=== PATIENT | male | born 1960 | race Caucasian/White ===

== ENCOUNTER 2018-07-19 14:28 | Outpatient (REF) | payer MEDICAID, SELFPAY ==
[2018-07-19 21:29] LABS: HCT 45.7 % (40.0-50.0); HGB 15.3 g/dL (13.5-17.5); Mean Corp. HGB Concentration 33.5 g/dL (32.0-36.0); Mean Corpuscular Hemoglobin 32.8 pg (27.0-33.0); Mean Corpuscular Volume 97.9 fL (80-95); Mean Platelet Volume 11.1 fL (8.0-11.0); Platelet Count 128 x1000/uL (130-400); RBC 4.67 m/cumm (4.50-6.00); RBC Distribution Width 11.8 % (11.8-14.1); White Blood Cell Count 5.54 k/cumm (4.4-10.8)
[2018-07-19 21:47] LABS: ALT 30 U/L (12-78); AST 22 U/L (15-37); Alkaline Phosphatase 101 U/L (46-116); Anion Gap 8.7 mmol/L (3-11); BUN 10 mg/dL (7-18); Bilirubin, Total 0.5 mg/dL (0.2-1.0); CO2 29.3 mmol/L (21.0-32.0); CREATININE 0.79 mg/dL (0.70-1.30); Calcium 8.9 mg/dL (8.5-10.1); Chloride 104 mmol/L (98-107); Glucose 88 mg/dL (70-100); Potassium 4.7 mmol/L (3.5-5.1); Sodium 142 mmol/L (136-145); Total Protein 6.9 g/dL (6.4-8.2)
[2018-07-19 22:21] LABS: Hemoglobin A1C 5.6 % (4.5-6.2)
[2018-07-21 09:29] LABS: PSA, Screening 1.4 ng/ml (0-3.5)
== END 2018-07-19 14:48 ==
LOC: NCHCN 14:28
PROVIDERS: PCP Family Medicine; Visit Provider Family Medicine
DX: R73.9 Hyperglycemia, unspecified (principal); D69.6 Thrombocytopenia, unspecified; I10 Essential (primary) hypertension; F10.10 Alcohol abuse, uncomplicated; E78.5 Hyperlipidemia, unspecified; M1A.9XX0 Chronic gout, unspecified, without tophus (tophi); Z79.01 Long term (current) use of anticoagulants; Z12.5 Encounter for screening for malignant neoplasm of prostate
CPT/HCPCS: 80053; 84153; 85027; 83036

== ENCOUNTER 2019-07-27 17:15 | Outpatient (REF) | payer MEDICAID, SELFPAY ==
[2019-07-27 20:59] LABS: Mean Corpuscular Hemoglobin 32.7 pg (27.0-33.0); Mean Corpuscular Volume 95.9 fL (80-95); Platelet Count 138 x1000/uL (130-400); RBC Distribution Width 11.7 % (11.8-14.1); White Blood Cell Count 6.53 k/cumm (4.4-10.8)
[2019-07-27 21:13] LABS: ALT 26 U/L (16-63); AST 18 U/L (15-37); Albumin 4.1 g/dL (3.4-5.0); Alkaline Phosphatase 98 U/L (46-116); Anion Gap 9.4 mmol/L (3-11); BUN 10 mg/dL (7-18); Bilirubin, Total 0.5 mg/dL (0.2-1.0); C-Reactive Protein 0.16 mg/dL (0.0-0.3); CO2 28.6 mmol/L (21.0-32.0); Calcium 8.8 mg/dL (8.5-10.1); Chloride 104 mmol/L (98-107); Creatine Kinase 135 U/L (39-308); Glucose 76 mg/dL (70-100); Sodium 142 mmol/L (136-145); Total Protein 6.9 g/dL (6.4-8.2); Uric Acid 3.9 mg/dL (3.5-7.2)
[2019-07-27 22:14] LABS: ESR 6 mm/hr (1-20)
[2019-07-31 10:16] LABS: Hepatitis C Ab w Rflx HCV PCR Negative (NEGAT)
[2019-07-31 10:40] LABS: PSA, Screening 1.5 ng/ml (0-3.5)
[2019-07-31 11:06] LABS: Rheumatoid Factor 9 IU/mL (<12.5)
[2019-07-31 11:32] LABS: HBs Antibody, Quant <3.1 mIU/mL; Hepatitis B Surface Ab Negative
[2019-07-31 14:20] LABS: ANA Interpretation Negative (NEGAT)
== END 2019-07-27 17:35 ==
LOC: NCHCN 17:15
PROVIDERS: PCP Family Medicine; Visit Provider Family Medicine
DX: D69.6 Thrombocytopenia, unspecified (principal); E78.5 Hyperlipidemia, unspecified; I10 Essential (primary) hypertension; M25.50 Pain in unspecified joint; M79.10 Myalgia, unspecified site; Z12.5 Encounter for screening for malignant neoplasm of prostate; Z11.59 Encounter for screening for other viral diseases
CPT/HCPCS: 80053; 82550; 84153; 85027; 85652; 86706; 86803; 84550; 86038; 86140; 86431

== ENCOUNTER 2021-03-27 13:21 | Outpatient (REF) | payer MEDICAID, SELFPAY ==
[2021-03-27 15:05] LABS: ESR 5 mm/hr (0-20)
[2021-03-27 15:11] LABS: HCT 44.1 % (40.0-50.0); HGB 15.2 g/dL (13.5-17.5); MCH 32.5 pg (27.0-33.0); MCHC 34.5 % (32.0-36.0); MCV 94.2 fL (80-95); MPV 10.8 fL (8.0-11.0); Platelet Count 123 10^3/uL (130-400); RBC 4.68 10^6/uL (4.36-5.78); RDW 11.3 % (11.8-14.1); RDW-SD 38.9 fL; WBC 5.12 10^3/uL (4.4-10.8)
[2021-03-27 15:29] LABS: ALT 23 U/L (16-63); AST 17 U/L (15-37); Albumin 4.2 g/dL (3.4-5.0); Alkaline Phosphatase 93 U/L (46-116); Anion Gap 6.7 mmol/L (3-11); BUN 13 mg/dL (7-18); Bilirubin, Total 0.6 mg/dL (0.2-1.0); C-Reactive Protein 0.13 mg/dL (0.0-0.3); CO2 29.3 mmol/L (21.0-32.0); CREATININE 0.8 mg/dL (0.70-1.30); Calcium 8.7 mg/dL (8.5-10.1); Chloride 104 mmol/L (98-107); Glucose 93 mg/dL (74-106); Potassium 4.9 mmol/L (3.5-5.1); Sodium 140 mmol/L (136-145); Total Protein 7.1 g/dL (6.4-8.2); Uric Acid 3.9 mg/dL (3.5-7.2)
[2021-03-27 15:39] LABS: Hemoglobin A1C 5.5 % (<5.7)
[2021-03-27 22:33] LABS: PSA, Diagnostic 1.7 ng/mL (0.0-3.5)
[2021-03-28 11:12] LABS: Lyme Ab w Rflx to Lyme Confirm Negative (Negative)
[2021-03-28 12:08] LABS: ANA Interpretation Negative (Negative)
[2021-03-29 19:37] LABS: Anaplasma phagocytophilum Negative (Negative); B. miyamotoi PCR Negative (Negative); Babesia divergens/MO-1 Negative (Negative); Babesia duncani Negative (Negative); Babesia microti Negative (Negative); Ehrlichia chaffeensis Negative (Negative); Ehrlichia ewingii/canis Negative (Negative); Ehrlichia muris eauclairensis Negative (Negative)
[2021-03-29 22:04] LABS: Rheumatoid Factor <8.6 IU/mL (<12.0)
== END 2021-03-27 13:22 | disposition home or self-care (01) ==
LOC: NCHCN 13:21
PROVIDERS: PCP Family Medicine; Visit Provider Family Medicine
DX: M25.59 Pain in other specified joint (principal); R73.03 Prediabetes; I10 Essential (primary) hypertension; M79.18 Myalgia, other site; E78.5 Hyperlipidemia, unspecified; M1A.9XX1 Chronic gout, unspecified, with tophus (tophi); Z79.52 Long term (current) use of systemic steroids; F10.10 Alcohol abuse, uncomplicated; Z12.5 Encounter for screening for malignant neoplasm of prostate
CPT/HCPCS: 80053; 80069; 85027; 85652; 87798; 83036; 84153; 84550; 86038; 86140; 86431; 86618

== ENCOUNTER 2021-05-21 01:45 | Outpatient (CLI) | payer MEDICAID, SELFPAY ==
--- NOTE | 2021-05-21 | DI.DEXA_ITS ---
Exam(s) XR DEXA BONE DENSITY W/WO BOB EXAM: XR DEXA BONE DENSITY W/WO BOB CLINICAL HISTORY: SKILLED NURSING STEROID USE, Z79.52 TECHNIQUE: Routine DEXA evaluation of the lumbar spine, hip, or forearm. COMPARISON: No exams were available for comparison FINDINGS: Performed on a Hologic unit. Lateral image: No compression fracture evident. Lumbar Spine total T-score: -0.9 Hip total T-score:-1.3 Independent reading at the femoral neck yields a T-score of -2.2 Forearm total T-score: -2.3 IMPRESSION: Bone mineral density measures in the osteopenia range. Fracture risk is moderate. Note: Any spine fracture indicates 5x risk for subsequent spine fracture and 2x risk for subsequent h ip fracture. World Health Organization criteria for BMD interpretation classify patients: Normal...... T- Score at or above -1.0 Osteopenic... T- Score between -1.0 and -2.5 Osteoporosis... T-Score at or below -2.5
== END 2021-05-21 02:05 ==
PROVIDERS: PCP Family Medicine; Visit Provider Family Medicine
DX: R93.7 Abnormal findings on diagnostic imaging of other parts of musculoskeletal system (principal); Z79.52 Long term (current) use of systemic steroids
CPT/HCPCS: 77080

== ENCOUNTER 2021-07-04 14:29 | Outpatient (REF) | payer MEDICAID, SELFPAY ==
[2021-07-04 18:59] LABS: TSH 0.34 uIU/mL (0.36-3.74)
== END 2021-07-04 14:30 | disposition home or self-care (01) ==
LOC: NCHCN 14:29
PROVIDERS: PCP Family Medicine; Visit Provider Family Medicine
DX: R63.5 Abnormal weight gain (principal); R53.83 Other fatigue
CPT/HCPCS: 84443

== ENCOUNTER 2021-09-12 14:50 | Outpatient (REF) | payer MEDICAID, SELFPAY ==
[2021-09-12 21:13] LABS: FREE T4 0.91 ng/dL (0.76-1.46)
[2021-09-14 17:43] LABS: T3,Free 3.5 pg/mL (2.8-5.3)
== END 2021-09-12 14:51 | disposition home or self-care (01) ==
LOC: NCHCN 14:50
PROVIDERS: PCP Family Medicine; Visit Provider Family Medicine
DX: E23.0 Hypopituitarism (principal)
CPT/HCPCS: 84439; 84481

== ENCOUNTER 2022-03-06 13:40 | Outpatient (REF) | payer MEDICAID, SELFPAY ==
[2022-03-06 15:19] LABS: HCT 43.9 % (40.0-50.0); HGB 14.9 g/dL (13.5-17.5); MCHC 33.9 % (32.0-36.0); MCV 97 fL (80-95); MPV 11.1 fL (8.0-11.0); Platelet Count 133 10^3/uL (130-400); RBC 4.51 10^6/uL (4.36-5.78); RDW 11.5 % (11.8-14.1); RDW-SD 41.3 fL; WBC 5.06 10^3/uL (4.4-10.8)
[2022-03-06 15:38] LABS: Hemoglobin A1C 5.6 % (<5.7)
[2022-03-06 15:41] LABS: ALT 29 U/L (16-63); AST 19 U/L (15-37); Albumin 4.1 g/dL (3.4-5.0); Alkaline Phosphatase 103 U/L (46-116); Anion Gap 5.7 mmol/L (3-11); BUN 11 mg/dL (7-18); Bilirubin, Total 0.4 mg/dL (0.2-1.0); CO2 30.3 mmol/L (21.0-32.0); CREATININE 0.8 mg/dL (0.70-1.30); Calcium 8.7 mg/dL (8.5-10.1); Calculated LDL 150 mg/dL (<100); Chloride 104 mmol/L (98-107); Cholesterol 251 mg/dL (<200); Glucose 108 mg/dL (74-106); HDL Cholesterol 90 mg/dL (40-60); Potassium 4.8 mmol/L (3.5-5.1); Sodium 140 mmol/L (136-145); TSH (W/Ref FT4) 0.42 uIU/mL (0.36-3.74); Total Protein 6.9 g/dL (6.4-8.2); Triglyceride 58 mg/dL (<150)
[2022-03-08 16:00] LABS: Anaplasma phagocytophilum Negative (Negative); B. miyamotoi PCR Negative (Negative); Babesia divergens/MO-1 Negative (Negative); Babesia duncani Negative (Negative); Babesia microti Negative (Negative); Ehrlichia chaffeensis Negative (Negative); Ehrlichia ewingii/canis Negative (Negative); Ehrlichia muris eauclairensis Negative (Negative)
[2022-03-09 12:33] LABS: Lyme Ab w Rflx to Lyme Confirm Negative (Negative)
== END 2022-03-06 13:41 | disposition home or self-care (01) ==
LOC: NCHCN 13:40
PROVIDERS: PCP Family Medicine; Visit Provider Family Medicine
DX: I10 Essential (primary) hypertension (principal); R73.03 Prediabetes; E78.5 Hyperlipidemia, unspecified; D69.6 Thrombocytopenia, unspecified; Z79.52 Long term (current) use of systemic steroids; F10.10 Alcohol abuse, uncomplicated
CPT/HCPCS: 80053; 80061; 85027; 87798; 83036; 84443; 86618

== ENCOUNTER → 2022-04-30 02:18 | Outpatient (CLI) | payer MEDICAID, SELFPAY ==
--- NOTE | 2022-04-30 10:30 | DI.US_ITS ---
Exam(s) US ABDOMEN EXAM: US ABDOMEN CLINICAL HISTORY: HEAVY ALCOHOL USE,Z72.89; FAMILY H/O LIVER CA,Z80.0; THROMBOCYTOPENIA,D69.6 TECHNIQUE: Ultrasound abdomen performed using standard protocol. COMPARISON: No exams were available for comparison FINDINGS: Exam is limited by patient body habitus and bowel gas. LIVER: 16.4 cm in length. Increased echogenicity throughout consistent with fatty infiltration.. No focal liver lesions are seen.. GALLBLADDER: No evidence of cholelithiasis. No evidence of wall thickening. No pericholecystic fluid identified. WOMACK'S SIGN: Negative. BILIARY SYSTEM: No intrahepatic or extrahepatic biliary ductal dilation. KIDNEYS: Kidneys are symmetric in size. No evidence of renal calculi. No evidence of hydronephrosis. No renal mass or cyst identified. PANCREAS: Normal where visualized. SPLEEN: Not enlarged. ABDOMINAL AORTA AND IVC: Visualized portions normal caliber. ASCITES: None seen. IMPRESSION: Limited exam due to patient body habitus. Fatty infiltration of the liver. DATA REPOSITORY:
== END ==
PROVIDERS: PCP Family Medicine; Visit Provider Family Medicine
DX: D69.6 Thrombocytopenia, unspecified (principal); Z72.89 Other problems related to lifestyle; Z80.0 Family history of malignant neoplasm of digestive organs; K76.0 Fatty (change of) liver, not elsewhere classified
CPT/HCPCS: 76700

== ENCOUNTER 2023-03-25 12:14 | Outpatient (REF) | payer MEDICAID, SELFPAY ==
[2023-03-25 15:13] LABS: HCT 47.6 % (40.0-50.0); HGB 16.3 g/dL (13.5-17.5); MCH 32.6 pg (27.0-33.0); MCHC 34.2 % (32.0-36.0); MCV 95 fL (80-95); MPV 11.4 fL (8.0-11.0); Platelet Count 141 10^3/uL (130-400); RDW 11.8 % (11.8-14.1); RDW-SD 40.8 fL; WBC 5.34 10^3/uL (4.4-10.8)
[2023-03-25 15:37] LABS: ALT 30 U/L (16-63); AST 22 U/L (15-37); Albumin 3.9 g/dL (3.4-5.0); Alkaline Phosphatase 97 U/L (46-116); Anion Gap 5.2 mmol/L (3-11); BUN 16 mg/dL (7-18); Bilirubin, Total 0.3 mg/dL (0.2-1.0); C-Reactive Protein 0.23 mg/dL (0.0-0.3); CO2 29.8 mmol/L (21.0-32.0); Calcium 9.1 mg/dL (8.5-10.1); Chloride 105 mmol/L (98-107); Estimated GFR 85.63 (mL/min/1.73m2); Glucose 105 mg/dL (74-106); Potassium 4.8 mmol/L (3.5-5.1); Sodium 140 mmol/L (136-145); TSH (W/Ref FT4) 0.45 uIU/mL (0.36-3.74); Total Protein 7.4 g/dL (6.4-8.2)
[2023-03-25 15:51] LABS: Hemoglobin A1C 5.7 % (<5.7)
[2023-03-26 19:26] LABS: PSA, Screening 2.2 ng/mL (<=4.5)
== END 2023-03-25 12:15 | disposition home or self-care (01) ==
LOC: NCHCN 12:14
PROVIDERS: PCP Family Medicine; Visit Provider Family Medicine
DX: I10 Essential (primary) hypertension (principal); R47.89 Other speech disturbances; E23.0 Hypopituitarism; Z12.5 Encounter for screening for malignant neoplasm of prostate; Z13.1 Encounter for screening for diabetes mellitus
CPT/HCPCS: 80053; 84153; 85027; 83036; 84443; 86140

== ENCOUNTER 2023-04-26 02:34 | Outpatient (CLI) | payer MEDICAID, SELFPAY ==
--- NOTE | 2023-04-26 | DI.RAD_ITS ---
Exam(s) XR SKULL COMPLETE EXAM: XR SKULL COMPLETE CLINICAL HISTORY: HX OF HEAD INJURY Z87.828, CHECK FOR METAL PLATE FROM INJURY CHILD. TECHNIQUE: 2D digital imaging was performed. COMPARISON: No exams were available for comparison FINDINGS: No fracture or other significant abnormalities are seen. The calvaria and skull base are normal. No metallic plate is seen. No metallic foreign bodies are noted in the orbits. IMPRESSION: Unremarkable radiographs of the skull. DATA REPOSITORY: RADIATION DOSE DELIVERED:
== END 2023-04-26 02:54 ==
LOC: DI 02:34
PROVIDERS: PCP Family Medicine; Visit Provider Family Medicine
DX: Z87.828 Personal history of other (healed) physical injury and trauma (principal)
CPT/HCPCS: 70260

== ENCOUNTER 2023-05-18 00:59 | Outpatient (CLI) | payer MEDICAID, SELFPAY ==
--- NOTE | 2023-05-18 10:45 | DI.MRI_ITS ---
Exam(s) MR ANGIO BRAIN WO EXAM: MR ANGIO BRAIN WO CLINICAL HISTORY: H/O HEAD INJURY, Z87.826; SPEECH DISTURBANCE, R47.9 TECHNIQUE: Performed on 1.5 dioni unit with [id number] sequence. No IV contrast COMPARISON: MR MR BRAIN WO from 05/18/2023 FINDINGS: Both internal carotid arteries are patent in the skull base-carotid canals and are also patent in cav ernous sinuses. Supraclinoid aspects of these vessels are patent. Both A1 segments are patent. Ant erior cerebral arteries are patent. No evidence of aneurysm at the level of the anterior communicati ng artery. The right middle cerebral artery is patent. Left middle cerebral artery exhibits loss of flow signal just distal to its origin with critical stenosis at this level and asymmetric decreased flow more pe ripherally in this vessel. Posterior circulation: Vertebral arteries at the skull base both contribute to the formation of the b asilar artery. Basilar artery is patent. Distally the basilar artery gives off superior cerebellar arteries and above this level terminates as patent left posterior cerebral artery. The right posteri or cerebral artery is fed by posterior communicating artery on the right side of the [id number]-lc-Amuphb . A smaller left posterior communicating artery is also evident on the left side of the twkjnr-uo-Lm llis. There is no aneurysm of the tip of the basilar artery. IMPRESSION: 1. Critical stenosis bordering on occlusion evident in the left middle cerebral artery just distal to its origin. There is decreased flow signal in the more peripheral aspect of the left middle cerebra l artery also noted. The right middle cerebral artery is patent. 2. There are posterior communicating arteries on both sides the skvndj-jg-Leovxm. No obvious aneurysms evident. DATA REPOSITORY:
--- NOTE | 2023-05-18 10:45 | DI.MRI_ITS ---
Exam(s) MR BRAIN WO EXAM: MR BRAIN WO CLINICAL HISTORY: H/O HEAD INJURY, Z87.826; SPEECH DISTURBANCE, R47.9 TECHNIQUE: Multiplanar multisequence MRI of the brain was performed. COMPARISON: MR MR ANGIO BRAIN WO from 05/18/2023 FINDINGS: CEREBRAL PARENCHYMA: There is no evidence of intracranial hemorrhage, mass effect, or shift of midline structures. There are no extra-axial fluid collections. Ventricles are not enlarged or shifted. There is no significant focal signal abnormality in the cerebellar hemispheres nor within the jermaine, m idbrain, and thalami. There is some signal abnormality in the mid left periventricular white matter. This also exhibits mi ld restricted diffusion and most probably represents subacute infarct in this region. In addition, there is asymmetric CSF space over the right temporal and right frontal lobes in the ant erior and middle right cranial fossa. Has more the appearance of atrophy than an actual arachnoid cy st at this level. PITUITARY GLAND: No mass nor parasellar abnormality. No obvious abnormality in the cavernous sinuses. FLOW VOIDS: The expected flow void are noted. No evidence of obvious aneurysm nor obvious vascular ma lformation. PARANASAL SINUSES: Mucosal thickening left maxillary sinus. No fluid level. Also left frontal sinus mucosal thickening without fluid level. ORBITS: No obvious findings. IMPRESSION: There is signal abnormality in the immediate periventricular left white matter which exhibits mild re stricted diffusion consistent with probable subacute lacunar infarct at this level. Area of atrophy-encephalomalacia over the right frontotemporal region in the right anterior and middl e cranial fossa. No intra-axial signal abnormality at this level. DATA REPOSITORY:
== END 2023-05-18 01:19 ==
LOC: DI 01:00
PROVIDERS: PCP Family Medicine; Visit Provider Family Medicine
DX: Z87.828 Personal history of other (healed) physical injury and trauma (principal); R47.9 Unspecified speech disturbances; I66.02 Occlusion and stenosis of left middle cerebral artery
CPT/HCPCS: 70544; 70551

== ENCOUNTER 2023-06-08 01:13 | Outpatient (CLI) | payer MEDICAID, SELFPAY ==
--- NOTE | 2023-06-08 | DI.CT_ITS ---
Exam(s) CT BRAIN CTA EXAM: CT BRAIN CTA CLINICAL HISTORY: MIDDLE CEREBRAL ARTERY STENOSIS, I66.09. TECHNIQUE: Imaging Protocol: Axial CT angiography was performed with multi-slice acquisition and mu lti-planar and/or 3D reconstructions. CONTRAST MATERIAL: Intravenous: Omnipaque 350 Contrast volume:85 mL COMPARISON: MR MR ANGIO BRAIN WO from 05/18/2023 MR MR BRAIN WO from 05/18/2023 FINDINGS: Internal Carotid Arteries: Petrous: Normal. Cavernous: Normal. Cerebral: Normal. Middle Cerebral Arteries: Right: No aneurysm, occlusion or significant stenosis. Left: No aneurysm or occlusion. Significant stenosis is again noted in the proximal right middle cer ebral artery, similar appearance to the previous exam. Again there is reduced flow to the more distal branches.. Anterior Cerebral Arteries: Right: No aneurysm, occlusion or significant stenosis. Left: No aneurysm, occlusion or significant stenosis. Posterial Cerebral Arteries: Right: No aneurysm, occlusion or significant stenosis. Left: No aneurysm, occlusion or significant stenosis. Vertebral Arteries: Right: No aneurysm, occlusion or significant stenosis. Left: No aneurysm, occlusion or significant stenosis. Basilar Artery: No aneurysm, occlusion or significant stenosis. CT head without in with IV contrast: Atrophy is again noted with some asymmetry in the inferior right temporal and frontal fossa. The lacu josue infarct seen in the left periventricular white matter is not visible on the current study. No new abnormalities. No evidence of hemorrhage. Ventricles are unchanged in appearance mucosal thickening in the left maxillary and multiple ethmoid sinuses. Mucosal thickening in the left frontal sinus. Mas toid air cells are clear. IMPRESSION: No significant change in appearance of stenosis of the proximal M1 segment of the left middle cerebra l artery. No acute abnormality in the brain. RADIATION DOSE DELIVERED: 1,499.41mGy.cm Total DLP DATA REPOSITORY: All CT scans at this facility are submitted to the National Radiology Data Registry (NRDR) Dose Index Registry (DIR) with the [employer] (ACR). RADIATION OPTIMIZATION: All CT scans at this facility use at least one of these dose optimization te chniques: automated exposure control; mA and/or kV adjustment per patient size (includes targeted exa ms where dose is matched to clinical indication); or iterative reconstruction.
[2023-06-08 08:43] LABS: CREATININE 1.1 mg/dL (0.70-1.30); Estimated GFR 76.37 (mL/min/1.73m2)
[2023-06-08] MEDS: Normal Saline Flush 10 ML SYR IVP (08:54)
[2023-06-08] MEDS: Normal Saline - Diluent 50 ML VIAL IJ (08:54)
[2023-06-08] MEDS: Omnipaque 350 MG/ML 500 ML BTL-Imaging package IJ (08:54)
== END 2023-06-08 01:33 ==
LOC: DI 01:15
PROVIDERS: PCP Family Medicine; Visit Provider Family Medicine
DX: I66.8 Occlusion and stenosis of other cerebral arteries (principal); I73.89 Other specified peripheral vascular diseases; I10 Essential (primary) hypertension
CPT/HCPCS: 70496; 82565

== ENCOUNTER 2023-06-18 09:31 | Outpatient (REF) | payer MEDICAID, SELFPAY ==
[2023-06-18 15:56] LABS: ALT 30 U/L (16-63); AST 21 U/L (15-37); Calculated LDL 121 mg/dL (<100); Cholesterol 227 mg/dL (<200); HDL Cholesterol 75 mg/dL (40-60); Triglyceride 157 mg/dL (<150)
[2023-06-18 16:42] LABS: Creatine Kinase 109 U/L (39-308)
== END 2023-06-18 09:32 | disposition home or self-care (01) ==
LOC: NCHCN 09:31
PROVIDERS: PCP Family Medicine; Visit Provider Family Medicine
DX: E78.5 Hyperlipidemia, unspecified (principal); I73.9 Peripheral vascular disease, unspecified
CPT/HCPCS: 80061; 82550; 84450; 84460

== ENCOUNTER 2023-08-26 01:49 | Outpatient (CLI) | payer MEDICAID, SELFPAY ==
--- NOTE | 2023-08-26 14:00 | DI.US_ITS ---
APPROVED REPORT EXAM: Comprehensive 2D, Doppler, and color-flow Echocardiogram Patient Location: Out-Patient Residential Property Tax Appraiser: Arleen Pack RDCS (AE) Indications: Peripheral vascular disease, HTN Other Information Study Quality: Fair. Technically limited study due to body habitus, limited subcostal imaging.. Conclusion Normal left ventricular wall thickness and chamber size. Ejection fraction is 60%. Wall motion is n ormal Normal right ventricular size and systolic function Both atria are normal in size There is no structural or hemodynamically significant valvular disease Wall motion Left Ventricle The left ventricle is normal size. The left ventricular systolic function is normal. The left ventric ular ejection fraction is within the normal range. There is normal left ventricular wall thickness. T here is normal LV segmental wall motion. LVEF is 60%. Right Ventricle The right ventricle is normal size. The right ventricular systolic function is normal. Atria The left atrium size is normal. The right atrium size is normal. Aortic Valve The aortic valve is normal in structure. There is no aortic valvular stenosis. Trace aortic regurgita tion. Mitral Valve The mitral valve is normal in structure. No evidence of mitral valve stenosis. Trace mitral regurgita tion. Tricuspid Valve The tricuspid valve is normal in structure. There is no tricuspid valve stenosis. Trace tricuspid reg urgitation. Unable to assess PA pressure. Pulmonic Valve The pulmonary valve is normal in structure. There is no pulmonic valvular stenosis. Mild pulmonic reg urgitation. Great Vessels The aortic root is normal in size. The ascending aorta is normal in size. The IVC was not well visual ized.Technically limited subcostal imaging. Pericardium Not clearly visualized. Appears normal. 2D Dimensions IVSD d PLAX 0.94 cm M: 0.6-1.2 Ao Root d 2.94 cm M: 3.1 - 3.7 LVPW d PLAX 0.93 cm M: 0.6 - 1.2 Ao Asc Diam d 3.37 cm M: 2.6 - 3.4 LVID d PLAX 4.98 cm M: 4.2 - 5.8 LVDs 3.38 cm M: 2.5 - 4.0 LV EF Teichholz 60.1 % FS 32.14 % LV EDV (Teich) 117.1 mL LV ESV (Teich) 46.7 mL M-Mode TAPSE 2.11 cm (M/F) >1.7 Auto EF LV EDV A4C 131.5 mL LV EDV A2C 162.5 mL LV EDV BP 146.7 mL LV ESV A4C 54.2 mL LV ESV A2C 55.8 mL LV ESV BP 54.5 mL LVEF(%) A4C 58.8 % LVEF(%) A2C 65.7 % LVEF(%) BP 62.8 % LV SV A4C 77.3 ml LV SV A2C 106.7 ml LV SV BP 92.2 ml LV CO A4C 5.8 L/min LV CO A2C 8.0 L/min LV CO BP 6.9 L/min HR A4C 74.85 BPM HR A2C 75.16 BPM LV EDV Index (BP) LA Volume LA Length A4C 6.4 cm LA Length A2C 6.1 cm LA Area A4C s 21.41 cm2 LA Area A2C s 25.56 cm2 LA Vol A4C A-L 61.01 mL LA Vol A2C A-L 91.39 mL LA Vol Biplane A-L 76.6 mL LA Vol/BSA A4C A-L LA Vol/BSA A2C A-L LA Vol/BSA BP A-L 37.2 mL/m2 LA Vol A4C MOD 57.7 mL LA Vol A2C MOD 84.9 mL LA Vol BP MOD 71.6 mL RA Volume RA Area A4C 12.6 cm2 RA ESV A4C (A-L) 25.3mL RA Vol/BSA A4C A-L RA Length A4C 5.3 cm RA ESV A4C (MOD) 23.3mL LV Diastology MV E' medial 0.083 (>0.07 m/s) MV E Vmax 0.99 (0.4-1.3 m/s) MV E/E' MED 11.89 (<14) MV A Vmax 1.10 (0.4-1.3 m/s) MV E' lateral 0.088 (>0.1 m/s) E/A Ratio 0.9 MV E/E' LAT 11.23 (<14) MV E' Average 0.086 m/s MV E/E'(average) 11.55 Aortic Valve AoV Vmax 1.75 m/s LVOT Vmax 1.41 m/s AoV Peak Grad 34.0 mmHg LVOT Peak Grad 8.0 mmHg AoV Area (Vmax) 2.90 cm2 LVOT VTI 0.298 m AoV VTI 0.356 m LVOT Mean Grad 4.4 mmHg AoV Mean Ezequiel. 1.14 m/s LVOT SV 107.07 mL AoV Mean Grad 6.1 mmHg LVOT Diam s 2.10 cm AoV Area (VTI) 3.01 cm2 AV Regurg Peak Gr. 55.75 mmHg Velocity Ratio 0.81 AR Decel Boyle 1.7m/sec2 AR DT 2189 msec AR PHT 635 msec AR Vmax 3.73 m/s Mitral Valve MV DT 164 (160-240 msec) MV Vmax TIPS 1.06 m/s MV Mean Grad 2.2 (<2mmHg) MV VTI 0.305 m Pulmonary Valve PV Vmax 1.27 (0.5-1.5 m/s) RVOT Vmax 0.75 m/s PV Peak Grad 6.4 mmHg RVOT Peak Gr. 2.3 mmHg PV Mean Ezequiel 0.85 m/s RVOT VTI 0.154 m PV Mean Grad 3.4 mmHg RVOT Mean Gr. 1.4 mmHg Tricuspid Valve TV S' 0.17 m/s
== END 2023-08-26 02:09 ==
LOC: DI 01:50
PROVIDERS: PCP Family Medicine; Visit Provider Family Medicine
DX: I73.9 Peripheral vascular disease, unspecified (principal)
CPT/HCPCS: 93306

== ENCOUNTER 2023-09-02 08:37 | Emergency (ER) | payer MEDICAID, SELFPAY ==
[2023-09-02] VITALS (13 sets, daily range): BP systolic 167; BP diastolic 81; PULSE 73–95; RESP 10–29; TEMP 36.6–37.1; O2SAT 93–98
--- NOTE | 2023-09-02 08:49 | ED.GENADUL_ITS ---
Discharge Plan Disposition Patient Disposition: Home Discharge Details Clinical Impression: Community acquired pneumonia of right middle lobe of lung Primary Care Provider: Esha Chowdary V ED Provider: Joseph Merlos Home Meds and New Rx's Prescriptions: New cefpodoxime 200 mg tablet 200 mg PO Q12H Qty: 10 0RF Rx Instructions: must administer with a meal/food Continued clonidine HCl [Catapres] 0.1 MG tablet 1 tab PO BID terazosin 1 MG capsule 1 tab PO DAILY Eliquis 5 mg tablet 5 mg PO BID cholecalciferol (vitamin D3) 50 mcg (2,000 unit) tablet 2,000 unit PO DAILY docusate sodium [Stool Softener] 100 mg capsule 100 mg PO BID febuxostat 40 mg tablet 40 mg PO DAILY prednisone 2.5 mg tablet 2.5 mg PO DAILY Discharge Instructions Instructions: Pneumonia (ED) Additional Instructions: Please read all of the information that accompanies these instructions. You were seen in the emergency department for your shortness of breath and cough. Your CAT scan showed no sign of blood clot in your lungs but did show that you have a pneumonia. You are receiving antibiotics that you should take as directed. Please schedule an appointment with your primary care provider later this week. Please return to the emergency department if develop worsening shortness of breath any fevers or have any falls. Discharge Data Discharge Date/Time-TO BE ENTERED AT DEPARTURE: 09/02/23 11:55 HPI General Date/Time Provider Initiated Documentation: 09/02/23 08:49 . HPI Narrative: MDM This is an overall very well-appearing normothermic and not tachycardic 63-year-old male with cough shortness of breath concerning for the possibility of pneumonia. No pain out of proportion to suggest necrotizing soft tissue infection. No chest pain to suggest ACS. Patient does endorse pleuritic chest pain has a history of PE so we will obtain a D-dimer to assess for possibility of pulmonary embolism. No epigastric tenderness to suggest pancreatitis. Equal breath sounds so my suspicion for pneumothorax is low given no preceding trauma. No history of emesis to suggest esophageal rupture. Patient is not a smoker and has no wheeze so defer nebulized bronchodilators at this point in time. We will send a COVID swab. Will provide acetaminophen for oral analgesia. Patient is not hypoxic however given his history of daily alcohol abuse and comorbidities of hypertension hyperlipidemia will obtain basic labs in the event that the patient has an pneumonia on chest x-ray to calculate a port score. Patient denies history of alcohol withdrawal. His vital signs are notable for hypertension but not tachycardia. He is not tremulous so I will not score him on a CIWA protocol. 9:33 AM Chest x-ray read is reassuring with no acute process. CBC lacks anemia thrombocytopenia and leukocytosis. 9:36 AM Patient metabolic panel showing mild hyperglycemia but no anion gap and normal bicarbonate??not consistent with DKA. No JONATHAN. Reassuring renal function. No acute electrolyte abnormalities. 9:50 AM COVID-negative. 11:[address] patient was found to have a small right middle lobe infiltrate for which he will receive cefpodoxime 200 mg twice daily. He has a port score at 62 points making him appropriate for an empiric trial of discharge with outpatient follow-up. We will provide him with return indications including any shortness of breath fevers chills or any falls. First dose of antibiotics administered in the ED. Chronic conditions affecting the care of the patient: Hypertension hyper lipidemia remote PE History obtained from an outside historian: Patient's [place] [facility] [place] hyperlipidemia history of PE alcohol abuse [Diagnostic interpretations performed by me:] [Per my independent interpretation chest x-ray shows:] No acute cardiopulmonary process Medications: Acetaminophen & Hycodan Social determinants of health affecting disposition: N/A Management discussed with: N/A Treatment/interventions considered: Hospitalization but deferred given no hypoxia and low port score Response to therapies provided: N/A HPI This is a 63-year-old male with a history of hypertension hyperlipidemia Daily alcohol abuse arrived to the emergency department via private vehicle in the setting of cough and shortness of breath. Patient reports that 6 days ago he began having symptoms of cough and shortness of breath. He has also had some pain when he breathes. His pain is located in his epigastrium. He reports that his symptoms are not completely similar to a pulmonary embolism that he had in 2013 and for which he continues to take apixaban. He reports that 7 days ago he had an echocardiogram which was scheduled as a result of a remote CVA. He is occasionally bringing up some phlegm. He denies hemoptysis chest pain syncope fevers and vomiting. He does have some epigastric discomfort when he coughs. He is with his who is subsequently also become ill. He had no preceding sick contacts. He denies routine tobacco but he does drink beer every day. He denies history of withdrawal. He denies illicit drug use. Exam General: Well-appearing in no acute distress speaking in complete sentences. Head: Normocephalic, atraumatic. Eye: Extraocular eye movements intact. No conjunctival injection. No scleral icterus. Ear, nose, mouth, throat: Grossly normal inspection. Normal voice, handling secretions normally. Neck: Trachea midline. Cardiovascular: Well-perfused distal extremities. Regular rate and rhythm Respiratory: Nonlabored respiration. Clear lungs bilaterally. Gastrointestinal: Nondistended abdomen. Soft nontender abdomen. Musculoskeletal: No edema. Moving all 4 extremities spontaneously. Skin: Normal for age and race, grossly normal temperature and turgor. No acute rash. Neurologic: Alert and appropriate, no apparent acute deficits. Psychiatric: Mood and manner are appropriate. Grooming and personal hygiene are appropriate. Related Data Home Medications Medication Instructions Recorded Confirmed clonidine HCl 0.1 mg tablet 1 tab PO BID 01/04/14 09/02/23 (Catapres) terazosin 1 mg capsule 1 tab PO DAILY 01/04/14 09/02/23 apixaban 5 mg tablet (Eliquis) 5 mg PO BID 09/02/23 09/02/23 cefpodoxime 200 mg tablet 200 mg PO Q12H #10 tabs 09/02/23 cholecalciferol (vitamin D3) 50 2,000 unit PO DAILY 09/02/23 09/02/23 mcg (2,000 unit) tablet docusate sodium 100 mg capsule 100 mg PO BID 09/02/23 09/02/23 (Stool Softener) febuxostat 40 mg tablet 40 mg PO DAILY 09/02/23 09/02/23 prednisone 2.5 mg tablet 2.5 mg PO DAILY 09/02/23 09/02/23 Previous Rx's Medication Instructions Recorded cefpodoxime 200 mg tablet 200 mg PO Q12H #10 tabs 09/02/23 Allergies Allergy/AdvReac Type Severity Reaction Status Date / Time No Known Allergies Allergy Unverified 01/04/14 15:14 General Stated Complaint: RespSymp HERNESTO: 3 PFSH All Active Problems (Updated 09/02/23 @ 11:22 by Joseph Merlos MD) Community acquired pneumonia of right middle lobe of lung (Acute) Social History Smoking/Tobacco Use Status: Never Smoking risk assessment performed?: Yes Alcohol Intake: current Alcohol Intake frequency: a few times a week Drug use: Never Substance use type: does not use Housing: house Do you feel safe at home: Yes Do you feel safe in your relationship?: Yes Additional Social history: unable to ask alone Course Vital Signs Vital signs: Vital Signs Temperature 36.6 C 09/02/23 08:40 Pulse 93 H 09/02/23 08:40 Respiratory Rate 18 09/02/23 08:40 Blood Pressure 167/81 H 09/02/23 08:40 Pulse Oximetry 98 09/02/23 08:40 Temperature 36.6 C 09/02/23 08:40 Temperature Source Tympanic 09/02/23 08:40 Pulse 93 H 09/02/23 08:40 Respiratory Rate 18 09/02/23 08:40 Respiratory Effort Short of Breath 09/02/23 08:48 Blood Pressure 167/81 H 09/02/23 08:40 Pulse Oximetry 98 09/02/23 08:40 PAWSS Have you Been Recently Intoxicated or Drunk Within the Last 30 days?: No Have you Ever Experienced Previous Episodes of Alcohol Withdrawal?: No Have you ever Experienced Withdrawal Seizures?: No Have you ever Experienced Delirium Tremens(DT)s?: No Have you ever undergone Alcohol Rehabilitation Treatment (i.e, inpt ot outpatient treatment programs)?: No Have you ever Experienced Blackouts?: No Have you ever Combined Alcohol with other Downers within the last 90 days?: No Have you ever Combined Alcohol with any other Substance of Abuse during the last 90 days?: No Positive Blood Alcohol level on Presentation? [PCS.BAL]: No Evidence of Increased Autonomic Activity (i.e. HR>120, tremor, sweating, agitation, nausea)?: No Result: 0
--- NOTE | 2023-09-02 09:00 | DI.RAD_ITS ---
Exam(s) XR PORTABLE CHEST AP EXAM: XR PORTABLE CHEST AP CLINICAL HISTORY: Shortness of breath cough TECHNIQUE: 2D digital imaging was performed. COMPARISON: No exams were available for comparison FINDINGS: Exam limited by poor pulmonary inflation and body habitus. LUNGS: Clear. No pleural abnormality seen. HEART: Normal size. AORTA: Normal diameter. BONES: Unremarkable for age. Soft tissues: Unremarkable. IMPRESSION: No acute findings. DATA REPOSITORY: RADIATION DOSE DELIVERED:
[2023-09-02 09:05] LABS: Source Nasal/Nares
[2023-09-02] MEDS: Acetaminophen 500 MG TAB 1000 MG PO (09:14)
[2023-09-02 09:19] LABS: Abs Immature Grans 0.01 10^3/uL (0.0-0.06); Absolute Basophil Count 0.03 10^3/uL (0.0-0.2); Absolute Eosinophil Count 0.09 10^3/uL (0.0-0.7); Absolute Lymphocyte Count 1.25 10^3/uL (1.2-3.4); Absolute Monocyte Count 0.92 10^3/uL (0.1-0.8); Absolute Neutrophil Count 5.86 10^3/uL (1.2-6.7); Basophils % 0.4; Eosinophils % 1.1; HCT 44.1 % (40.0-50.0); HGB 14.7 g/dL (13.5-17.5); Immature Grans % 0.1; Lymphocytes % 15.3; MCHC 33.3 % (32.0-36.0); MCV 93 fL (80-95); MPV 10.2 fL (8.0-11.0); Monocytes % 11.3; Neutrophils % 71.8; Platelet Count 166 10^3/uL (130-400); RBC 4.74 10^6/uL (4.36-5.78); RDW 11.3 % (11.8-14.1); RDW-SD 39.2 fL; WBC 8.16 10^3/uL (4.4-10.8)
[2023-09-02 09:32] LABS: Anion Gap 6.8 mmol/L (3-11); BUN 14 mg/dL (7-18); CO2 28.2 mmol/L (21.0-32.0); Calcium 9.5 mg/dL (8.5-10.1); Chloride 101 mmol/L (98-107); Glucose 169 mg/dL (74-106); Sodium 136 mmol/L (136-145)
[2023-09-02 09:46] LABS: COVID-19 PCR Negative (Negative)
[2023-09-02 10:04] LABS: D-Dimer 2179 ng/mlFEU (<500)
[2023-09-02] MEDS: Normal Saline 500 ML IV (10:26)
[2023-09-02] MEDS: Normal Saline - Diluent 50 ML VIAL IJ (10:38)
[2023-09-02] MEDS: Omnipaque 350 MG/ML 100 ML BTL IJ (10:39)
--- NOTE | 2023-09-02 10:48 | DI.CT_ITS ---
Exam(s) CT CHEST PE CTA EXAM: CT CHEST PE CTA CLINICAL HISTORY: Shortness of breath or leg pain history of PE. TECHNIQUE: Imaging Protocol: Axial CT angiography was performed with multi-slice acquisition and mu lti-planar reconstructions as well as axial, coronal and sagittal MIP reconstructions. CONTRAST MATERIAL: Intravenous: Omnipaque 350 Contrast volume:100 ml COMPARISON: CT CT BRAIN CTA from 06/08/2023 CR XR PORTABLE CHEST AP from 09/02/2023 FINDINGS: Pulmonary Arteries: No evidence of filling defect to suggest pulmonary emboli. Tracheobronchial tree: Patent where visualized. Mediastinum and Nita: No dominant adenopathy or fluid collection. Pulmonary parenchyma: Somewhat limited evaluation due to expiratory changes. Small patchy infiltrate adjacent to inferior left hilum, in the posterior aspect of the right middle lobe. No measurable ma ss. Pleura: No effusion or pneumothorax. Heart: The heart is not dilated. No coronary artery calcifications are seen. No pericardial effusio n. Aorta: Thoracic aorta non-dilated. No aneurysm. No dissection. Upper abdomen: Unremarkable. Bones: Flowing osteophytes along the thoracic spine. Tubes, Catheters, and Lines: None IMPRESSION: No evidence of pulmonary embolism. Small infiltrate posterior right middle lobe. RADIATION DOSE DELIVERED: Total DLP DATA REPOSITORY: All CT scans at this facility are submitted to the National Radiology Data Registry (NRDR) Dose Index Registry (DIR) with the [employer] (ACR). RADIATION OPTIMIZATION: All CT scans at this facility use at least one of these dose optimization te chniques: automated exposure control; mA and/or kV adjustment per patient size (includes targeted exa ms where dose is matched to clinical indication); or iterative reconstruction.
[2023-09-02] MEDS: Cefpodoxime 200 MG TAB PO (11:40)
== END 2023-09-02 11:55 | disposition home or self-care (01) ==
PROVIDERS: Emergency Provider Emergency Medicine; PCP Family Medicine
DX: J18.9 Pneumonia, unspecified organism (principal); I10 Essential (primary) hypertension; E78.5 Hyperlipidemia, unspecified; Z86.711 Personal history of pulmonary embolism; Z79.01 Long term (current) use of anticoagulants; Z20.822 Contact with and (suspected) exposure to COVID-19
CPT/HCPCS: 36415; 71275; 80048; 87635; 96361; 99285; 71045; 85025; 85379; 99284; J3490

== ENCOUNTER 2024-05-26 09:10 | Outpatient (REF) | payer MEDICAID, SELFPAY ==
--- OUTSIDE RECORDS SUMMARY | 2024-05-26 09:12 | XMS_ITS | Data Portability ---
Author Organization [facility] Address [address] [place] [address] Care Team Providers Care Retaining Room Cutter Name Role Phone EDDY SELBY Primary Care Provider Assessment No assessment recorded. Plan of Treatment Reminders Order Date Submit Date Provider Last Modified By Organization Details Last Modified Time Details Appointments Annual Wellness Exam 40 2023 07:30A M EDDY SELBY Not available Not available Not available Follow Up 30 2024 07:30A M EDDY SELBY Not available Not available Not available Lab None recorded. Referral None recorded. Procedures None recorded. Surgeries None recorded. Imaging None recorded. Medication Orders hydrocodo ne 5 mg-acetam inophen 325 mg tablet 2022 023 [facility]-, [address] [place], [address], 11/27/2023 17:32:21 Patient TargetsNo targets recorded. Patient Instructions Encounter Date Encounter Id Patient Instructions Last Modified By Organization Details Last Modified Time 09/23/2023 [id number] Use the hydrocodone 1/2 - 1 tablet as needed for more severe knee pain - use during the day, not in the evening Restart the simvastatin 1 tablet every evening sberrian Not available 09/23/2023 16:47:56 Reason for Referral None Reported. Results Created Date Observation Date Name Description Value Unit Range Abnormal Flag LastModifiedBy Organization Detail LastModifiedTime 10/20/20 23 04/23/2021 XR, hand No observ ation record ed. [address], [address], 10/21/2023 08:49:21 10/20/2004/23/2021 XR, ankle No observ ation record ed. Not Available 10/21/2023 08:49:08 10/20/20 23 04/23/2021 XR, knee No observ ation record ed. Not Available 10/21/2023 08:48:53 Result Notes None recorded. Problems Name Status Onset Date Resolution Date Notes Provider Name and Address Organization Details Recorded Time Essential hypertension Active 201106/18/2023 - Comments only - Eddy Selby MD - BPs improved with increase in terazosin dose to 10mg (max dose), also continues clonidine. UTD with BMP. Problem Code: I10; Problem Code Type: ICD-10; Not Available [facility] 3 05:15:55 History of pulmonary embolus Active 201209/10/2021 - Comments only - Eddy Selby MD - And DVT. Recommendatio n per hematology is for him to remain anticoagulate d lifelong, seems to be tolerating Eliquis well. Up-to-date with CBC. Problem Code: Z86.711; Problem Code Type: ICD-10; Not Available [facility] 3 05:15:55 Hyperlipidemi a Active 201406/18/2023 - Comments only - Eddy Selby MD - tolerating the simvastatin at 10mg daily (has historically been intolerant of atovastatin). Will check lipids, LFTs, CPK today and decide on increasing dose. Problem Code: E78.5; Problem Code Type: ICD-10; Not Available [facility] 3 05:15:55 Pain in left foot Active 2014 Problem Code: M79.672; Problem Code Type: ICD-10; Not Available [facility] 3 05:15:55 Disorder of soft tissue Active 2015 Problem Code: M79.89; Problem Code Type: ICD-10; Not Available [facility] 3 05:15:55 Pain in left lower limb Active 2015 Problem Code: M79.605; Problem Code Type: ICD-10; Not Available [facility] 3 05:15:56 Thromboemboli sm of vein Active 201509/13/2022 - Comments only - Eddy Selby MD - , History of. He continues to take Eliquis without adverse effect. Problem Code: I82.90; Problem Code Type: ICD-10; Not Available [facility] 3 05:15:56 Pain of right knee joint Active 2015 Problem Code: M25.561; Problem Code Type: ICD-10; Not Available [facility] 3 05:15:56 Anticoagulant therapy Active 201607/07/2021 - Comments only - Eddy Selyb MD - With history of DVT. He remains on Eliquis. I will need to touch base with him at the next visit regarding his history of hematology evaluation and what their recommendatio ns were. Not Available [facility] 3 05:15:56 Thrombocytope shona disorder Active 201703/28/2023 - Comments only - Eddy Selby MD - , History of. Also anticoagulate d. We will check a CBC. Problem Code: D69.6; Problem Code Type: ICD-10; Not Available [facility] 3 05:15:56 Adult health examination Active 201707/27/2019 - Comments only - Faizan Marks - Ordered PSA screening. Encouraged him to continue his current lifestyle regimen. Problem Code: Z00.00; Problem Code Type: ICD-10; Not Available [facility] 3 05:15:56 Chronic tophaceous gout Active 09/13/2022 - Comments only - Eddy Selby MD - And osteoarthriti s. He continues on the Febuxostat and has not had any significant gout flares recently. He does continue to take prednisone 2.5 mg most days for arthritic pain. Strongly encouraged him to cut back which he has been doing, some days not taking it at all. Discussed that the goal would be that he would use predominantly Tylenol for osteoarthriti c pain and just have prednisone available for flares which may be related to chronic gout. Problem Code: M1A.9xx1; Problem Code Type: ICD-10; Not Available [facility] 3 05:15:56 Joint pain Active 201807/27/2019 - Comments only - Faizan Marks - /myalgias. Will check CK, ESR, CRP, MIKKI, and rheumatoid factor. Problem Code: M25.50; Problem Code Type: ICD-10; Not Available [facility] 3 05:15:56 Muscle pain Active 2018 Problem Code: M79.10; Problem Code Type: ICD-10; Not Available [facility] 3 05:15:56 Prediabetes Active 201903/28/2023 - Comments only - Eddy Selby MD - Due for an A1c Problem Code: R73.03; Problem Code Type: ICD-10; Not Available [facility] 3 05:15:56 Long-term current use of systemic steroid Active 202009/13/2022 - Comments only - Eddy Selby MD - DEXA scan last year did show some osteopenia. He is taking vitamin D, aware of the importance of getting off daily prednisone. A1c last year was 5.6. Problem Code: Z79.52; Problem Code Type: ICD-10; Not Available [facility] 3 05:15:57 Bone density finding Active 202003/09/2022 - Comments only - Eddy Selby MD - again, working on cutting back on prednisone. On vit D, getting some weight bearing exercise. Problem Code: M85.80; Problem Code Type: ICD-10; Not Available [facility] 3 05:15:57 Fatigue Active 2020 Problem Code: R53.83; Problem Code Type: ICD-10; Not Available [facility] 3 05:15:57 Abnormal weight gain Active 202007/07/2021 - Comments only - Eddy Selby MD - And fatigue. The fatigue he attributes to the Covid vaccination although it has not improved over the intervening months. Weight gain may be related to his decreased activity but I think it worthwhile checking thyroid functions. Problem Code: R63.5; Problem Code Type: ICD-10; Not Available [facility] 3 05:15:57 Hypopituitari sm Active 202003/09/2022 - Comments only - Eddy Selby MD - but normal free T4 an T3, will recheck TSH today Problem Code: E23.0; Problem Code Type: ICD-10; Not Available [facility] 3 05:15:57 Osteoarthriti s of multiple joints Active 202003/09/2022 - Comments only - Eddy Selby MD - and h/o chronic gout - he continues on the uloric which has worked well for the gout. He will continue trying to avoid the prednisone daily for his gouty arthritis/marc ctive arthritis. He is learning to pace himself better and sounds like he is handling pain better. Problem Code: M15.9; Problem Code Type: ICD-10; Not Available [facility] 3 05:15:57 Self-injuriou s behavior Active 202003/28/2023 - Comments only - Eddy Selby MD - , Again not currently interested in cutting back. We discussed that, he is aware there are things that might be able to help him in the future when he is ready to start cutting back on alcohol use. Problem Code: Z72.89; Problem Code Type: ICD-10; Not Available [facility] 3 05:15:57 Family history of malignant neoplasm of prostate Active 202103/28/2023 - Comments only - Eddy Selby MD - Due for PSA Problem Code: Z80.42; Problem Code Type: ICD-10; Not Available [facility] 3 05:15:57 Family history of malignant neoplasm of digestive organ Active 202109/13/2022 - Comments only - Eddy Selby MD - And prostate cancer. He did meet with genetic counseling at [facility], they did not find any significant inheritable cancer genes for which she is relieved. He is aware that this does not mean he could not develop a cancer. PSA checked last year was within normal limits. Problem Code: Z80.0; Problem Code Type: ICD-10; Not Available [facility] 3 05:15:58 History of injury Active 2022 Problem Code: Z87.828; Problem Code Type: ICD-10; Not Available [facility] 3 05:15:58 Disturbance in speech Active 202203/28/2023 - Comments only - Eddy Selby MD - , Transient, concern for TIA. Discussed that sometimes people have TIAs as a precursor to a larger stroke and it is very important to get this evaluated. We will start with imaging. Basil states that he had a significant head injury at about [age] years of age, he does not know if he has a metal plate in his head or not. He also has a history of welding. We will get a skull film to start with and then decide on MRI versus CT. Pending result will then dispense decide on Holter monitor, echocardiogra m. Of note he is on Eliquis for history of DVTs. He does take it consistently. 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 Results have been forwarded to [facility]. He has not yet heard from neurology there. Genny is going to contact them early next week to try and schedule an appt. In the meantime he continues on the eliquis, simvastatin. He did not tolerate the ASA 81mg (diarrhea). Problem Code: I66.09; Problem Code Type: ICD-10; Not Available [facility] 3 05:15:58 Peripheral vascular disease Active 2022 Problem Code: I73.9; Problem Code Type: ICD-10; Not Available [facility] 3 05:15:58 Altered bowel function Active 202206/18/2023 - Comments only - Eddy Selby MD - with benign findings on exam today. He is due for a colonoscopy this year (prior one 10 years ago WN). He wants to hold off until MCA stenosis evaluated. Discussed managing constipation better with metamucil (doesn't have alot of fiber in his diet) to see if that helps. The diarrhea may be stool leak around constipation. Problem Code: R19.4; Problem Code Type: ICD-10; Not Available [facility] 3 05:15:58 Pulmonary embolism Completed 201208/04/2023 Not Available [facility] 3 05:16:07 Hyperglycemia Completed 201602/28/2020 Problem Code: R73.9; Problem Code Type: ICD-10; Not Available [facility] 3 05:16:12 Alcohol abuse Completed 201109/10/2021 Problem Code: F10.10; Problem Code Type: ICD-10; Not Available [facility] 3 05:16:15 Chronic gout without tophus Completed 201401/23/2019 Problem Code: M1A.9xx0; Problem Code Type: ICD-10; Not Available [facility] 3 05:16:18 Nondependent alcohol abuse, continuous Completed 201108/04/2023 Problem Code: 305.01; Problem Code Type: ICD-9; Not Available [facility] 3 05:16:19 Pneumonia Completed 202209/23/[address], [facility] [address] , [facility] 3 16:43:56 Constipation Active [address], [facility] [address] , [facility] 4 17:32:57 Problem Notes None recorded. Procedures Surgical History None recorded. Imaging Results Imaging Date Name Status LastModified by Organiz ation Details LastModified Time 04/23/2021 XR, hand completed [address], [place], [address], 10/21/2023 08:49:21 04/23/2021 XR, ankle completed Information no t available 10/21/2023 08:49:08 04/23/2021 XR, knee completed Information no t available 10/21/2023 08:48:53 Procedure Notes None recorded. Medical Equipment None Reported. Allergies Allergen ID Allergen Name Allergen Category Reaction Reaction Severity Criticality Documentation Date Start Date Code Code System Note Provider Name and Address Organization Details Recorded Time allopurin ol medicatio n other mild Not available 09/17/20232010 519 RxNorm GI upset Aller gyRea ction : 'GI upset '; Not Available [facility] 3 16:11:52 atenolol medicatio n other mild Not available 09/17/20232012 1202 RxNorm fatig ue Aller gyRea ction : 'fati twyla'; Not Available [facility] 3 16:11:52 Norvasc medicatio n other mild Not available 09/17/20232012 51146 RxNorm flu-l calixto sympt oms Aller gyRea ction : 'flu- like sympt oms'; Not Available [facility] 3 16:11:52 55604 morphine sulfate medicatio n swelling mild Not available 09/17/20232012 62042 RxNorm swell ing Not Available [facility] 3 16:11:53 22001 Tylenol medicatio n other moderate Not available 09/17/20232016 52906 3 RxNorm stoma ch upset Aller gyRea ction : 'stom ach upset '; Aller gyCod e: '[id number] 08'; Aller gyNam e: 'TYLE NOL'; Aller gyCon ceptT ype: 'NDC' ; Not Available [facility] 3 16:11:53 11035 atorvasta tin medicatio n arthralgi a (joint pain) moderate high 09/22/20232021 56447 RxNorm achin ess in LEs Nilam Lucio [facility] 3 08:00:12 36656 tramadol medicatio n other moderate high 09/22/20232015 74204 RxNorm kiko ers gout Nilam [place] [facility], [facility] 3 08:00:57 72427 diltiazem Not available headache swelling moderate moderate high 09/22/20232012 3443 RxNorm LE swell ing Nilam Lucio [facility], [facility] 3 08:02:08 34414 hydrochlo rothiazid e medicatio n photosens itivity moderate high 09/22/20232011 5487 RxNorm very sun/h eat sensi tive Nilam [place] [facility], [facility] 3 08:03:07 74001 hydrocodo ne Not available headache moderate low 11/26/2023 5489 RxNorm fall of 2022, also sever e sweat s EDDY SELBY MD [address], [place], [address] , [facility] 4 08:22:28 28261 simvastat in medicatio n other moderate high 11/26/20232022 46028 RxNorm throa t swell ing sensa tion - tried on 3 diffe rent occas ions EDDY SELBY MD [address], [place], [address] , [facility] 4 08:36:12 Medications Name Sig Start Date Stop Date Status Note LastModified by Organization Details LastModified Time losartan 50 mg tablet 1 TAB daily 02/21 completed Not Available Not Available Not Available cyclobenzap rine 10 mg tablet 1 tab three times a day prn 12/26 completed Not Available Not Available Not Available terazosin 5 mg capsule Take 1 capsule by mouth every night 07/22 completed Not Available Not Available Not Available hydralazine 10 mg tablet 1 tab bid, may end up increasin g to 2 tabs bid 07/27 completed Not Available Not Available Not Available Colace 100 mg capsule Take 1 capsule by mouth twice a day , can decrease to once a day in the future 11/26 completed Not Available Not Available Not Available clonidine HCl 0.1 mg tablet 2CAP twice daily 10/22 completed Not Available Not Available Not Available prednisone 10 mg tablet Take 1 tablet by mouth once a day as needed active Not Available Not Available No t Available Protonix 40 mg tablet,michelle yed release 1 daily 11/04 completed Not Available Not Available Not Available terazosin 5 mg tablet 1 TAB at bedtime 02/02 completed Not Available Not Available Not Available doxycycline hyclate 100 mg capsule Take 1 capsule twice a day for 1 day if tick has been attached for more than a few hours, call the office if attached for longer or any associate d rash/feve r/increas ed joint aches 2021 active Not Available Not Available Not Avai lable atorvastati n 10 mg tablet Take 1 tablet by mouth every evening 09/05 completed Not Available Not Available Not Available cefpodoxime 200 mg tablet TAKE ONE TABLET BY MOUTH EVERY 12 HOURS WITH FOOD OR MEAL 09/23 completed Not Available Not Available Not Available Lotrisone 1 %-0.05 % topical cream cream twice daily 02/24 completed Not Available Not Available Not Available hydrocodone 5 mg-acetamin ophen 325 mg tablet Take 1 tablet twice a day by oral route as needed. 11/27 completed Not Available Not Available Not Available Keflex 500 mg capsule Take 1 tab four times daily 11/01 completed Not Available Not Available Not Available lisinopril 20 mg tablet 1 qd 09/03 completed Not Available Not Available Not Available prednisone 20 mg tablet TAKE 2 TABLETS BY MOUTH DAILY FOR 5 DAYS, THEN 1 DAILY FOR 5 DAYS 09/23 completed Not Available Not Available Not Available clonidine HCl 0.3 mg tablet TAKE 1 TABLET BY MOUTH TWICE A DAY 2023 active Not Available Not Available Not Avai lable simvastatin 10 mg tablet Take 1 tablet by mouth every night as directed can start with 1/2 tablet every night and if no side effects in a few weeks increase to a whole tablet 10/26 completed Not Available Not Available Not Available aspirin 81 mg tablet,michelle yed release Take 1 tablet by mouth once a day with breakfast 06/18 completed Not Available Not Available Not Available tramadol 50 mg tablet 1 tab by mouth 4 times a day prn 12/26 completed Not Available Not Available Not Available clonidine HCl 0.2 mg tablet TAKE 1 TABLET BY MOUTH TWICE A DAY 03/25 completed Not Available Not Available Not Available Percocet 10 mg-325 mg tablet 1CAP q6h 05/09 completed Not Available Not Available Not Available terazosin 2 mg capsule TAKE 1 CAPSULE BY MOUTH AT BEDTIME 10/10 completed Not Available Not Available Not Available hydrocodone 7.5 mg-acetamin ophen 325 mg tablet 1 tab qid prn as needed 02/02 completed Not Available Not Available Not Available prednisone 2.5 mg tablet TAKE 1 TABLET BY MOUTH DAILY TRY TO REDUCE TO EVERY OTHER DAY active Not Available Not Available No t Available Norvasc 5 mg tablet 1 TAB daily 09/06 completed Not Available Not Available Not Available promethazin e 25 mg tablet 1 tabs q6hrs as needed 11/04 completed Not Available Not Available Not Available Hyzaar 50 mg-12.5 mg tablet 1 TAB QD 02/21 completed Not Available Not Available Not Available indomethaci n 50 mg capsule Take 1 tab TID 02/02 completed Not Available Not Available Not Available terazosin 1 mg tablet 1 TAB at bedtime 10/18 completed Not Available Not Available Not Available triamcinolo ne acetonide 0.5 % topical ointment ointment tid 02/14 completed Not Available Not Available Not Available magnesium 250 mg tablet 1 tab daily 11/22 completed Not Available Not Available Not Available Coumadin 5 mg tablet tab daily 11/22 completed Not Available Not Available Not Available Tylenol-Cod eine #3 300 mg-30 mg tablet 1 tab 6h PRN 11/15 completed Not Available Not Available Not Available albuterol sulfate HFA 90 mcg/actuati on aerosol inhaler Inhale 2 puffs every 4 hours by inhalatio n route as needed. active Not Available Not Available No t Available Naprosyn 500 mg tablet 1 TAB Twice a day 2014 active Not Available Not Available Not Avai lable losartan 100 mg tablet 1 TAB daily 03/04 completed Not Available Not Available Not Available terazosin 10 mg capsule TAKE 1 CAPSULE BY MOUTH EVERY NIGHT active Not Available Not Available No t Available atenolol 50 mg tablet 1 TAB QD 09/06 completed Not Available Not Available Not Available Diltiazem ER 240 mg capsule, extended release 1 CAP daily 02/02 completed Not Available Not Available Not Available Diltiazem ER 180 mg capsule, extended release 1 CAP daily 01/13 completed Not Available Not Available Not Available diltiazem ER 120 mg tablet,exte nded release 24 hr 1 CAP daily 01/12 completed Not Available Not Available Not Available Tylenol 8 Hour 650 mg tablet,exte nded release Take 2 tablet by mouth twice a day as needed 2020 active Not Available Not Available Not Avai lable metoprolol tartrate 25 mg tablet Take 1/2 tab at hs 07/27 completed Not Available Not Available Not Available multivitami n 1TAB daily 11/22 completed Not Available Not Available Not Available omeprazole 20 mg tablet,michelle yed release Take 1 by mouth BID 11/15 completed Not Available Not Available Not Available cholecalcif ricardo (vitamin D3) 50 mcg (2,000 unit) tablet TAKE 1 TABLET BY MOUTH DAILY 2023 active Not Available Not Available Not Avai lable febuxostat 40 mg tablet TAKE 1 TABLET BY MOUTH DAILY. Uloriq active Not Available Not Available No t Available Colcrys 0.6 mg tablet take 2 tabs at first sign of attach and 1 tab 1 hour later, max 3tabs in 12 hour period. 12/26 completed Not Available Not Available Not Available Eliquis 5 mg tablet TAKE 1 TABLET BY MOUTH TWICE A DAY active Not Available Not Available No t Available Metamucil 0.4 gram capsule Take 1 capsule by mouth twice a day Take with full cup of water, call if you start developin g diarrhea 2022 active Not Available Not Available Not Avai lable Vitals Date Recorded Body height Body mass index (BMI) Body weight Body temperature Oxygen saturation Oxygen saturation in Arterial blood by Pulse oximetry Heart rate Respiratory rate Systolic blood pressure Diastolic blood pressure Provider Name and Address Organization Details Last Updated DateTime 3 169.189 4 cm 33.3 kg/m2 00442.1 2 g 97.5 [degF] 96 % 96 % 76 /min 16 /min 132 mm[Hg] 62 mm[Hg] Nilam Lucio [facility] 3 07:57:14 Date Recorded Body height Body mass index (BMI) Body weight Body temperature Oxygen saturation Oxygen saturation in Arterial blood by Pulse oximetry Heart rate Respiratory rate Systolic blood pressure Diastolic blood pressure Provider Name and Address Organization Details Last Updated DateTime 4 169.189 4 cm 33.3 kg/m2 52223.4 g 97.5 [degF] 96 % 96 % 92 /min 16 /min 130 mm[Hg] 78 mm[Hg] Nilam Lucio [facility] 4 07:55:29 Date Recorded Body height Body mass index (BMI) Body weight Oxygen saturation Oxygen saturation in Arterial blood by Pulse oximetry Heart rate Systolic blood pressure Diastolic blood pressure Provider Name and Address Organization Details Last Updated DateTime 4 169.189 4 cm 33.3 kg/m2 84590.8 3 g 97 % 97 % 65 /min 136 mm[Hg] 68 mm[Hg] Tom Caldera MA [facility] 4 07:36:15 Social History Question Answer Notes LastModified by Organizat ion Details LastModified Time Tobacco Smoking Status Never Smoker Nilam copeland [facility] 09/23/2023 08:01:11 What Was The Date Of Your Most Recent Tobacco Screening? 09/23/2023 [email or web address] Information not available 09/23/2023 Has Tobacco Cessation Counseling Been Provided? No Information not available 09/23/2023 Do You Or Have You Ever Used Any Other Forms Of Tobacco Or Nicotine? No [email or web address] Information not available 09/23/2023 Sex: Male Functional Status None recorded. Mental Status None recorded. Family History Relationship Description Onset Age of this Age Resolved Age Notes Notes:*Problem: Mother: Dece ased at 69 lung cancer(small cell metastatic), arthritis(starting at a young age), had been a smoker Father: at 74 from liver CA (metastatic from melanoma) also had a h/o prostate CA, DM , gout Sisters: 2; both healthy, 1 with MS and Graves disease, other healthy Brothers: 1; alive DM Children: 2; 33 y/o daughter healthy, 30 y/o son healthy Grandmother had a CVA and lost her speach Family History of: Hypertension: mother did Hyperlipidemia: No Coronary heart disease: No Diabetes mellitus: Yes father Breast cancer: No Colorectal cancer: No Prostate cancer: Yes father Alcoholism: No Mental illness: No Other: No Landon grandparents of stomach CA and prostate CA. On mothers side GF of throat cancer, GM of CT. Cousin, aunts and uncles have from cancer. Medical History No medical history recorded. Immunizations Vaccine Type Date Status Provider Name and Address Organization Details Recorded Time COVID-19, mRNA, LNP-S, PF, toni-sucrose, 30 mcg/0.3 mL 09/23/[address], [place], [address], [facility] 09/26/2023 10:38:33 Influenza, split virus, quadrivalent, PF 09/23/[address], [place], [address], [facility] 09/26/2023 10:38:33 Tdap 05/26/2024 completed Tom Caldera MA [facility], [facility] 05/26/2024 08:54:04 Tdap 03/04/2012 completed Not Available [facility] 06:04:58 Influenza, split virus, quadrivalent, PF 09/05/2021 completed Not Available [facility] 09/17/2023 06:04:58 Influenza, split virus, quadrivalent, PF 09/10/2022 completed Not Available [facility] 09/17/2023 06:04:58 COVID-19, mRNA, LNP-S, PF, 100 mcg/0.5mL dose or 50 mcg/0.25mL dose 02/11/2021 completed Not Available [facility] 09/17/2023 06:04:58 COVID-19, mRNA, LNP-S, PF, 100 mcg/0.5mL dose or 50 mcg/0.25mL dose 03/11/2021 completed Not Available [facility] 09/17/2023 06:04:58 COVID-19, mRNA, LNP-S, PF, 100 mcg/0.5mL dose or 50 mcg/0.25mL dose 09/12/2021 completed Not Available [facility] 09/17/2023 06:04:58 COVID-19, mRNA, LNP-S, bivalent, PF, 30 mcg/0.3 mL dose 09/10/2022 completed Not Available [facility] 09/17/2023 06:04:58 Past Encounters Encounter ID Performer Location Encounter Start Date Encounter Closed Date Diagnosis/Indication Diagnosis SNOMED-CT Code [id number] EDDY SELBY MD [address] [address] 09/23/2023 07:47:27 09/23/2023 09:25:09 Osteoarthritis of knee 016327134 Osteoarthr itis of right knee joint 026284955198293 Active or passive immunization 868704197 Pneumonia 634642857 Occlusion and stenosis of middle cerebral artery without infarction 951222898088079 Hyperlipidemia 86846484 Essential hypertension 30770906 [id number] EDDY SELBY MD [address] [address] 11/26/2023 07:42:04 11/26/2023 08:50:15 Occlusion and stenosis of middle cerebral artery without infarction 603265400189025 Hyperlipidemia 65125418 Essential hypertension 19663929 Osteoarthr itis of knee 695433592 Pneumonia 663891360 Constipation 38286193 Bone density finding 385 298323 [id number] EDDY SELBY MD [address] [place] [address] 05/26/2024 07:20:55 05/26/2024 08:38:32 Active or passive immunization 265258522 Screening for malignant neoplasm of colon 889297837 Adult heal th examination 654471003 Screening for cancer 158 79065 Occlusion and stenosis of middle cerebral artery without infarction 171017028331004 Essential hypertension 72819133 Osteoarthr itis of multiple joints 816207235 Hyperlipidemia 13751006 Prediabetes 552694795 Pain of ri ght knee joint 208194227315444 Health Concerns Section Related Observation LastModified by Organization Detai ls LastModified Time None Recorded Concern Status LastModified by Organization Details LastModified Time None Recorded Advance Directives Directive None Recorded Payers Encounter Date Sequence Insurance Name Policy Number Policy Gar Covered Member ID Gar Member ID Guarantor Name 09/23/2023 1 [facility] (MEDICAID) Basil Landon [id number] Basil Landon 11/26/2023 1 [facility] (MEDICAID) Basil Landon [id number] Basil Landon Notes Date Note Type Note Provider Name and Address Organization Details Recorded Time 09/23/2023 text/html HPI Notes: f/u pneumonia, gout/arthralgias, h/o TIA MD [address], [place], [address], [facility] 09/26/2023 10:39:14 11/26/2023 text/html HPI Notes: f/u pneumonia, gout/arthralgias, h/o TIA, hyperlipidemia MD [address], [place], [address], [facility] 11/27/2023 17:35:46
--- OUTSIDE RECORDS SUMMARY | 2024-05-26 09:13 | XMS_ITS | Encounter Summary ---
Author Organization [facility] Address [facility] [place] [address] Care Team Providers Care Director Chemistry Name Role Phone Esha Chowdary MD Primary Care Provider Encounter Details Date Type Department Care Team (Late st Contact Info) Description 01/30/2014 Telephone [place]ematology [place] [address] Asrenio French MD [facility] [address] HEMATOLOGY/[place] [address] Social History Tobacco Use Types Packs/Day Years Used Date Smoking Tobacco: Never Smokeless Tobacco: Never Sex and Gender Information Value Date Recorded Sex Assigned at Not on file Gender Identity Not on file Sexual Orientation Not on file documented as of this encounter Miscellaneous Notes * Telephone Encounter - Arsenio French MD - 01/30/2014 3:18 PM EDT Received a fax from Dr. Esha Chowdary, with the results of the d-dimer testing showing an elevationof the d-dimer at 578 (normal range 45-500). He was off warfarin when this was drawn for over 3 months. He also had a colonoscopy that was negative (recommendation was to repeat the colonoscopy in 10years). Dr. Chowdary stated that Mr. Landon was having joint pains that significantly improved once he stopped the warfarin, and he will likely be reluctant to restart anticoagulation. We discussed that he hasaround 1/5 chance of having a repeat VTE in the next 2 years off anticoagulation based on the d-dimer result. I recommended lovenox 40mg subq with warfarin until INR is 2-3 and then stop lovenox and continue with warfarin, or rivaroxaban 20mg po daily. Dr. Chowdary said that she will discuss this with Mr. Landon and will contact us if there are any further questions or concerns. ARSENIO FRENCH MD (Hematology and Oncology Fellow) Pager [phone] documented in this encounter Plan of Treatment Upcoming Encounters Date Type Department Care Team (Late st Contact Info) Description 07/06/2024 9:[address] [place] [place] [address] Leticia Krishnamurthy MD [facility] [place] [address] 07/06/2024 10:00 AM EDT [place] [address] Leticia Krishnamurthy MD [facility] [place] [address] documented as of this encounter Visit Diagnoses Not on filedocumented in this encounter Care Teams Director Chemistry Relationship Specialty Start Date End Date Esha Chowdary MD [address] [place] [address] PCP - General 03/17/13 documented as of this encounter
--- OUTSIDE RECORDS SUMMARY | 2024-05-26 09:13 | XMS_ITS | Encounter Summary ---
Author Organization [place] [address] Care Team Providers Care Front Maker Name Role Phone Esha Chowdary MD Primary Care Provider [phone] Reason for Referral * Diagnostic Test (Routine) - Authorized Specialty Diagnoses / Procedures Referred By Tiffanie yuan Referred To Contact Radiology Diagnoses Cerebrovascular accident (CVA) due to stenosis of left middle cerebral artery Procedures CT Angiogram Carotids & Alturas of [place] Leticia Krishnamurthy MD [facility] [place] [address] [facility] [place] [address] Referral ID Status Reason Start Date Expiration Date Visits Requested Visits Authorized [id number] Authorized Specialty Service Requested 02/09/2024 08/10/2025 1 1 Reason for Visit * Consultation (Routine) - Authorized Specialty Diagnoses / Procedures Referred By Tiffanie yuan Referred To Contact Neurology Diagnoses Stenosis of middle cerebral artery, unspecified laterality Esha Chowdary MD [address] [address] Leticia Krishnamurthy MD [facility] [place] [address] Referral ID Status Reason Start Date Expiration Date Visits Requested Visits Authorized [id number] Authorized Consult, Test & Treat PCP Updated and/or Approved 3 09/01/2024 12 12 Encounter Details Date Type Department Care Team (Latest Contact Info) Description 02/09/2024 8:30 AM EDT TH Visit (TeleHealth) [place] [address] Leticia Krishnamurthy MD [facility] [place] [address] Cerebrovascular accident (CVA) due to stenosis of left middle cerebral artery (Primary Dx) Social History Tobacco Use Types Packs/Day Years Used Date Smoking Tobacco: Never Smokeless Tobacco: Never Sex and Gender Information Value Date Recorded Sex Assigned at Not on file Gender Identity Not on file Sexual Orientation Not on file documented as of this encounter Progress Notes * Leticia Krishnamurthy MD - 02/09/2024 8:30 AM EDT Images from the original note were not included. Cerebrovascular Disease and Stroke Program Department [place] [address] t: [phone] / f: [phone] Date of Appointment: 02/09/2024 Patient: Basil Landon PCP: MD Esha Villarreal MD [address] [place] [id number] I have been asked to see Basil Landon in consultation by Dr. Chowdary for his hx of vascular stenosis in my capacity as Vascular Neurology Specialist. Stroke Hx: 05/18/2023 Altered mentation. Slurring words, right sided weakness, unable to talk. Symptoms lasted for minutes, then several other episodes Tried statin - sore throat, joint pain Smoking never ETOH ocassional. driugs Interval History: Repeat events or new symptoms: Hospital readmissions/ED visits since discharge: Residual deficits: Ongoing rehab: Still having epsioide of speech difficulties two at month. Less than a minutes. See further assessment scales below, completed and reviewed this visit. Assessment Scales and Questionnaires 02/08/2024 Stroke:MMAS-4 MMAS-4 Score 4 (High Adherence) Do you ever forget to take your medication? No Are you careless at times about taking your medicine? No Sometimes, if you feel worse when you take the medicine, do you stop taking it? No When you feel better do you sometimes stop taking your medicine? No 02/08/2024 Stroke:PROMIS-10 Vfuofy61-Yhxxyqno Health Score 37.4 Plphzb97-Pcsdfc Health Score 38.8 Health in general Fair Quality of life Fair Physical health Fair Mental health Good Satisfaction with social activities Fair Ability to carry out physical activities Moderately Rate of pain 5 Rate of fatigue Moderate Ability to carry out social activities Fair Bothered by emotional problems Sometimes 02/08/2024 Stroke:SIS-16 SIS-16 Score 71 a. Dress the top part of your body? Not difficult at all b. Bathe yourself? Not difficult at all c. Get to the toilet on time? Not difficult at all d. Control your bladder (not have an accident)? Not difficult at all e. Control your bowels (not have an accident)? Not difficult at all f. Standing without losing balance? Not difficult at all g. Go shopping? Not difficult at all h. Do heavy magazine journalist (e.g., vaccum, laundry or yard work?) Not diffcult at all i. Stay sitting without losing your balance? Not difficult j. Walk without losing your balance? A little difficult k. Move from a bed to a chair? Not difficult at all l. Walk fast? Very difficult m. Climb one flight of stairs? A little difficult n. Walk one block? Somewhat difficult o. Get in and out of a car? A little difficult p. Carry heavy objects (e.g., bag of groceries) with your affected hand? A little difficult 02/08/2024 Stroke:Cognitive Screening Patient Cognitive Screening Yes Caregiver Cognitive Screening Yes 02/08/2024 Stroke:GAD2+7 GAD7 Total Score (Range 0-21) 0 (No Anxiety) GAD2 Subscore 0 (Brief screen negative) Nervous, anxious Not at all Unable to stop worrying Not at all 02/08/2024 Stroke:PHQ2+9 PHQ-2 Score 0 (Brief PHQ2 screen negative) Little interest or pleasure Not at all Down, depressed, hopeless Not at all 02/08/2024 Stroke:CSI (Caregiver Response) CSI Score 1 (Indicates a need for intervention) Sleep is disturbed No Inconvenient No Physical strain No Confining No Family adjustments No Changes in personal plans No Emotional adjustments No Upsetting behavior No Upsetting to find he/she has changed No Work adjustments No Financial strain No Completely overwhelmed Yes Patient Active Problem List Diagnosis Code Hypertension I10 Hyperlipemia E78.5 Pulmonary embolism I26.99 Alcohol abuse, daily use F10.10 Allergies Allergen Reactions Allopurinol GI upset Atenolol Fatigue Diltiazem LE swelling Hctz/Reserpine/Hydralazine [Bvjsmspncjv-Gznafynw-Meyzfpnvl] Very sun/heat sensitive Norvasc [Amlodipine] Flu-like symptoms Tramadol No outpatient medications have been marked as taking for the 02/09/24 encounter (TH Visit (TeleHealth)) with Leticia Krishnamurthy MD. EXAM: There were no vitals filed for this visit. Well appearing patient, nontoxic. Higher cortical function, namely attention, concentration, orientation, judgment, fund of knowledge, remote and recent memory was assessed by conversation today. hisspeech was fluent/articulate, with no word finding difficulties, no dysarthria or paraphasic errors. Normal naming and reading. Pupils are symmetric and reactive.Full conjugated extraocular movements. No facial weakness. Tongue protrudes midline. Normal sensation to light touch. Strength is symmetric in all extremities to confrontation. No ataxia, no dysmetria. Gait normal. NIH Stroke Scale: (bold applicable choices) NIH Stroke Scale at Initial Evaluation: 1.a. Level of consciousness: 0-Alert 1-Not alert, but arousable with minimal stimulation 2-Not alert, requires repeat stimulation to attend 3-Coma 1.b. Ask patient the month and their age: 0-Answers both correctly 1-Answers one correctly 2-Both incorrect 1.c. Ask patient to open and close eyes: 0-Obeys both correctly 1-Obeys one correctly 2-Both incorrect 2. Best gaze (horizontal eye movement): 0-Normal 1-Partial gaze palsy 2-Forced deviation 3. Visual field testin-No visual field loss 1-Partial hemianopia 2-Complete hemianopia 3-Bilateral hemianopia (blind including cortical blindness) 4. Facial paresis (Ask patient to show teeth or raise eyebrows and close eyes tightly): 0-Normal symmetrical movement 1-Minor paralysis (flattened nasolabial fold, asymmetry on smiling) 2-Partial paralysis (total or near paralysis of lower face) 3-Complete paralysis of one or both sides (absence of facial movement in the upper and lower face) 5. Motor function right arm: 0-Normal (extends arm 90 degrees for 10 seconds without drift) 1-Drift 2-Some effort against gravity 3-No effort against gravity 4-No movement UT-Untestable (Joint fused or limb amputated) 5. Motor function- left arm: 0-Normal (extends arm 90 degrees for 10 seconds without drift) 1-Drift 2-Some effort against gravity 3-No effort against gravity (but baseline) 4-No movement UT-Untestable (Joint fused or limb amputated) 6. Motor function right le-Normal (extends leg 30 degrees for 5 seconds without drift) 1-Drift 2-Some effort against gravity 3-No effort against gravity 4-No movement UT-Untestable (Joint fused or limb amputated) 6. Motor function-left le-Normal (extends leg 30 degrees for 5 seconds without drift) 1-Drift 2-Some effort against gravity 3-No effort against gravity 4-No movement UT-Untestable (Joint fused or limb amputated) 7. Limb ataxia: 0-No ataxia 1-Present in one limb 2-Present in two limbs 8. Sensory (Use pinprick to test arms, legs, trunk and face compare side to side): 0-Normal 1-Mild to moderate decrease in sensation 2-Severe to total sensory loss 9. Best language (describe picture, name items, read sentences): 0-No aphasia 1-Mild to moderate aphasia 2-Severe aphasia 3-Mute 10. Dysarthria (read several words): 0-Normal articulation 1-Mild to moderate slurring of words 2-Near unintelligible or unable to speak UT-Intubated or other physical barrier 11. Extinction and inattention: 0-Normal 1-Inattention or extinction to bilateral simultaneous in one of the sensory modalities 2-Severe orlin-inattention or orlin-inattention to more than one modality TOTAL SCORE: Modified Rhett Scale (MRS) 0: No symptoms at all 1: No significant disability despite symptoms; able to carry out all usual duties and activities 2: Slight disability; unable to carry out all previous activities, but able to look after own affairs without assistance 3: Moderate disability; requiring some help, but able to walk without assistance 4: Moderate disability; unable to walk without assistance and unable to attend to own bodily needs without assistance 5: Severe disability; bedridden, incontinent and requiring constant nursing care and attention 6: Data and records reviewed: Lipids Lipid Panel Last 3 Hemoglobin A1Cs No results found for: HA1C Clinical Impression and recommendations: Basil Landon is a 63 y.o.male with hx of vascular stenosis of the L MCA. Continue ASA + statin. Will monitor with CTA of head. Modifiable Risk Factors in Secondary Stroke Prevention Risk Factor Treatment Goals Hypertension Patients with hypertension: <140/90 mm Hg; 10-mm Hg reduction in systolic BP and 5-mm Hg reduction in diastolic BP from baseline Patients with diabetes mellitus or renal disease: <130/80 mm Hg; 10-mm Hg reduction in systolic BP and 5-mm Hg reduction in diastolic BP from baseline Patients without hypertension: <120/80 mm Hg; 10-mm Hg reduction in systolic BP and 5-mm Hg reduction in diastolic BP from baseline Dyslipidemia Atherosclerotic stroke or TIA: low-density lipoprotein (LDL) cholesterol level <70 mg/dl or 50% reduction in LDL cholesterol level from baseline Nonatherosclerotic stroke or TIA: per National Cholesterol Education Program (NCEP) Adult TreatmentPanel III (ATP-III) goals Diabetes Mellitus HgA1c level <7% Cigarette Smoking Complete cessation Alcohol Consumption Men: two or fewer drinks per day Non woman: one or fewer drinks per day Physical Activity At least 30 minutes of moderate intensity physical exercise 1- 3 times per week Diet Low-fat, low-sodium, and Mediterranean or Dietary Approaches to Stop Hypertension diets (diabetic diet when applicable) Obesity Goal body mass index of 18.5-25 kg/m2 Disposition: Return to clinic in 3 months. Education provided today covered: patient-specific vascular risk factors, cause of the TIA/stroke, prognosis and risk of recurrence, medications for TIA/stroke prevention, potential side effects of these medications, management of modifiable risk factors including heart healthy diet, increased physical activity, maintaining smoke free status, moderation in alcohol, weight management, blood pressure, glucose and cholesterol control, warning signs of stroke, plan to contact EMS in event of recurrent symptoms. Results of diagnostic studies were reviewed. Compliance with treatment and regular follow- up with PCP was emphasized. On the day of this encounter, I the medical provider spent a total of at least 70 minutes providingthis patient's care. This includes time spent horj-lt-hzqa with the patient performing evaluation, examination, and counseling . It also includes non qjuf-vz-jfvv time preparing to see the patient, reviewing the chart, coordinating care, and documenting clinical information in the electronic healthrecord. documented in this encounter Plan of Treatment Upcoming Encounters Date Type Department Care Team (Late st Contact Info) Description 07/06/2024 9:[address] [place] [address] Leticia Krishnamurthy MD [facility] [place] [address] 07/06/2024 10:00 AM EDT [place] [address] Leticia Krishnamurthy MD [facility] [place] [address] Scheduled Orders Name Type Priority Associated Diagnoses Orde r Schedule CT Angiogram Carotids & Alturas of [place] Imaging Routine Cerebrovascular accident (CVA) due to stenosis of left middle cerebral artery Expected: 05/10/2024, Expires: 11/09/2024 Comprehensive metabolic panel (non-fasting) Lab Routine Cerebrovascular accident (CVA) due to stenosis of left middle cerebral artery Expected: 05/10/2024, Expires: 11/09/2024 Lipid Panel (Reflex Direct LDL) Lab Routine Cerebrovascular accident (CVA) due to stenosis of left middle cerebral artery Expected: 05/10/2024, Expires: 11/09/2024 documented as of this encounter Visit Diagnoses Diagnosis Cerebrovascular accident (CVA) due to stenosis of left middle cerebral artery- Primary documented in this encounter Care Teams Front Maker Relationship Specialty Start Date End Date Esha Chowdary MD [address] [place] [address] PCP - General 03/17/13 documented as of this encounter
--- OUTSIDE RECORDS SUMMARY | 2024-05-26 09:13 | XMS_ITS | Encounter Summary ---
Author Organization [facility] [place] [address] Care Team Providers Care Lean Engineer Name Role Phone Esha Chowdary MD Primary Care Provider [phone] Reason for Visit * Reason Onset Date Comments Medication Problem 02/10/2024 Encounter Details Date Type Department Care Team (Late st Contact Info) Description 02/10/2024 Telephone [place] [address] Leticia Krishnamurthy MD [facility] [place] [address] Medication Problem Social History Tobacco Use Types Packs/Day Years Used Date Smoking Tobacco: Never Smokeless Tobacco: Never Sex and Gender Information Value Date Recorded Sex Assigned at Not on file Gender Identity Not on file Sexual Orientation Not on file documented as of this encounter Miscellaneous Notes * Telephone Encounter - Lindy Amaya RN - 02/22/2024 11:35 AM EDT Awaiting response * Telephone Encounter - Lindy Amaya RN - 02/17/2024 4:45 PM EDT Communication sent to Dr Krishnamurthy to discuss. * Telephone Encounter - Brianna Wright - 02/17/2024 4:13 PM EDT Patients spouse, Jodi, was calling to check up on this medication that was mentioned at patients last visit, Crestor. Please advise with an update * Telephone Encounter - Yessica Juarez RN - 02/10/2024 11:41 AM EDT Copied from CRM #[id number]. Topic: Specialty Dept CRMs - Medication Issues >> Feb 10, 2024 11:29 AM Mandi Simpson wrote: Medication Issues Specialist : Leticia Diamond Relationship (if other than patient-full name): Paola - Pharmacist at [facility] Reason for call: Medication Issue (if symptom based used Triage Subtopic) Message/information for the nurse: y Name of Medication: Crestor / Atovastatin Issue with the medication: Paola alongside the patient's is following up on Crestor script .Patient is under the impression that the provider has prescribed this medication. Please call the patient to clarify. documented in this encounter Plan of Treatment Upcoming Encounters Date Type Department Care Team (Late st Contact Info) Description 07/06/2024 9:[address] [place] [address] Leticia Krishnamurthy MD [facility] [place] [address] 07/06/2024 10:00 AM EDT Office [place] [address] Leticia Krishnamurthy MD [facility] [place] [address] documented as of this encounter Visit Diagnoses Not on filedocumented in this encounter Care Teams Lean Engineer Relationship Specialty Start Date End Date Esha Chowdary MD [address] [place] [address] PCP - General 03/17/13 documented as of this encounter
--- OUTSIDE RECORDS SUMMARY | 2024-05-26 09:13 | XMS_ITS | Encounter Summary ---
Author Organization [facility] [place] [address] Care Team Providers Care Lion Hunter Name Role Phone Darlin Powell BLASTING CLAY MINER Primary Care Provider [phone] Encounter Details Date Type Department Care Team (Late st Contact Info) Description 03/01/2013 Abstract [facility] [address] [facility] [place] [address] Priscilla Vázquez RN Social History Tobacco Use Types Packs/Day Years Used Date Smoking Tobacco: Never Assessed Sex and Gender Information Value Date Recorded Sex Assigned at Not on file Gender Identity Not on file Sexual Orientation Not on file documented as of this encounter Plan of Treatment Upcoming Encounters Date Type Department Care Team (Late st Contact Info) Description 07/06/2024 9:[address] [place] [phone] Leticia Krishnamurthy MD [facility] [place] [address] 07/06/2024 10:00 AM EDT [place] [phone] Leticia Krishnamurthy MD [facility] [place] [address] documented as of this encounter Visit Diagnoses Not on filedocumented in this encounter Care Teams Lion Hunter Relationship Specialty Start Date End Date Darlin Powell APRN [facility] [address] NUR [address] [place] [address] PCP - General 09/30/10 03/16/13 documented as of this encounter
--- OUTSIDE RECORDS SUMMARY | 2024-05-26 09:13 | XMS_ITS | Clinical Summary ---
Author Organization [facility] Address [facility] [place] [address] Care Team Providers Care Job Press Operator Name Role Phone Esha Chowdary MD Primary Care Provider [phone] Allergies Active Allergy Reactions Criticality Noted Date Comments Allopurinol 03/01/2013 GI upset Atenolol 03/01/2013 Fatigue Diltiazem 03/01/2013 LE swelling Thtxnpynqjd-Ofgjydiy-Vogmvp zid 03/01/2013 Very sun/heat sensitive Amlodipine 03/01/2013 Flu-like symptoms Tramadol 04/23/2021 Medications Medication Sig Dispensed Refills Start Date End Date Status terazosin (HYTRIN) 1 mg capsule Take 7 mg by mouth nightly. Active cloNIDine (CATAPRES) 0.1 mg tablet Take 0.2 mg by mouth 2 times daily. Active predniSONE (DELTASONE) 5 mg tablet Take 2.5 mg by mouth daily. In addition to 10mg prn Active Uloric 40 mg Tablet daily. 03/24/2021 Activ e Eliquis 5 mg Tablet 2 times daily. 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 90 tablet 3 02/28/2024 Active Active Problems Problem Noted Date Diagnosed Date Alcohol abuse, daily use 08/18/2013 Pulmonary embolism 06/23/2013 Overview (06/23/2013): 04/2013: RLL, Dx by CT (scanned) Hyperlipemia 03/17/2013 Hypertension Family History Medical History Relation Comments Breast Cancer Cousin double cousin (m aternal AND paternal 1st cousin to patient) Melanoma Father metastatic to li shefali Prostate Cancer Father metastatic to co real Skin Cancer Father Breast Cancer Maternal Aunt 1 Lung Cancer Maternal Aunt 2 Brain Cancer Maternal Cousin dx <40 Cancer Maternal Grandfather throat Leukemia Maternal Uncle 1 Cancer Maternal Uncle 2 unknown primary Cancer Maternal Uncle 3 unknown primary Lung Cancer Maternal Uncle 4 metastatic to b rain Lung Cancer Mother Skin Cancer Niece Skin Cancer Paternal Aunt Prostate Cancer Paternal Grandfather suspected d iagnosis Rectal Cancer Paternal Grandfather suspected m et from prostate Stomach Cancer Paternal Grandmother Stomach Cancer Paternal Uncle 1 dx <65 Lung Cancer Paternal Uncle 2 Brain Cancer Paternal Uncle 3 Relation Status Comments Cousin Father Maternal Aunt 1 Maternal Aunt 2 Maternal Cousin Maternal Grandfather Maternal Grandmother Maternal Uncle 1 Maternal Uncle 2 Maternal Uncle 3 Maternal Uncle 4 Mother Niece Alive Paternal Aunt Paternal Grandfather Paternal Grandmother Paternal Uncle 1 Paternal Uncle 2 Paternal Uncle 3 Social History Tobacco Use Types Packs/Day Years Used Date Smoking Tobacco: Never Smokeless Tobacco: Never Sex and Gender Information Value Date Recorded Sex Assigned at Not on file Gender Identity Not on file Sexual Orientation Not on file Last Filed Vital Signs Vital Sign Reading Time Taken Comments Blood Pressure 193/78 04/23/2021 2:15 PM EDT Pulse 72 04/23/2021 2:15 PM EDT Temperature 36.6 ??C (97.8 ??F) 04/23/2021 2:15 PM ED T Respiratory Rate 18 08/18/2013 10:13 AM EDT Oxygen Saturation 98% 04/23/2021 2:15 PM EDT Inhaled Oxygen Concentration - - Weight 83 kg (183 lb) 04/23/2021 2:15 PM EDT Height 168.5 cm (5' 6.34) 04/23/2021 2:15 PM ED T Body Mass Index 29.24 04/23/2021 2:15 PM EDT Plan of Treatment Upcoming Encounters Date Type Department Care Team (Late st Contact Info) Description 07/06/2024 9:[address] [place] [address] Leticia Krishnamurthy MD [facility] [place] [address] 07/06/2024 10:00 AM EDT [place] [address] Leticia Krishnamurthy MD [facility] [place] [address] Health Maintenance Due Date Last Done Comments CT Colonography 1961 Colonoscopy 1961 Colorectal Cancer Screening 1961 FIT DNA 1961 FIT 1961 Sigmoidoscopy (10 year) with FIT yearly 1961 Sigmoidoscopy 1961 HIV screen 1979 Hepatitis C Screening 1979 Tdap adult 1980 Tetanus vaccine 1980 Zoster vaccine (1 of 2) 2011 Advance Directive 2016 Covid-19 Vaccine ( season) 2023 Influenza (Flu) vaccine (1 o f 1 - Influenza standard series) 07/09/2024 Care Teams Job Press Operator Relationship Specialty Start Date End Date Esha Chowdary MD [address] [place] [address] PCP - General 03/17/13
--- OUTSIDE RECORDS SUMMARY | 2024-05-26 09:13 | XMS_ITS | Encounter Summary ---
Author Organization [facility] [place] [address] Care Team Providers Care Ripper Operator Name Role Phone Esha Chowdary MD Primary Care Provider [phone] Reason for Visit * Reason Comments Hypertension has had different me ds for hypertension with side effects; Terazosin fairly well tolerated - was dizzy when dose increased to 5 mg daily. Takes b/p at home - running 160-170/ 90s Encounter Details Date Type Department Care Team (Late st Contact Info) Description 03/17/2013 10:00 AM EDT Office Visit [facility] [address] [place] [address] Walter Mahajan Jr., MD [address] [place] [address] HTN (hypertension) (Primary Dx) Social History Tobacco Use Types Packs/Day Years Used Date Smoking Tobacco: Never Smokeless Tobacco: Never Sex and Gender Information Value Date Recorded Sex Assigned at Not on file Gender Identity Not on file Sexual Orientation Not on file documented as of this encounter Last Filed Vital Signs Vital Sign Reading Time Taken Comments Blood Pressure 182/108 03/17/2013 10:14 AM EDT L.- sitting Pulse 78 03/17/2013 10:06 AM EDT regular Temperature - - Respiratory Rate - - Oxygen Saturation - - Inhaled Oxygen Concentration - - Weight 88 kg (194 lb 0.1 oz) 03/17/2013 10:06 AM EDT Height 170.2 cm (5' 7) 03/17/2013 10:0 6 AM EDT Body Mass Index 30.39 03/17/2013 10:06 AM EDT documented in this encounter Patient Instructions * Patient Instructions* Walter Mahajan Jr., MD - 03/17/2013 10:50 AM EDT Diet Balance diet and Exercise- Energy (Calorie) Budget Diet- Healthy food selections: Fruits and vegetables Whole grains Low-fat or nonfat dairy Legumes Low-fat protein Fish -Saturated fats < 10% of calories, < 300mg cholesterol -Limit trans fatty acid intake (main dietary sources are baked goods and fried foods made with partially hydrogenated vegetable oil) Fats ??? Saturated- bad, raises LDL (bad cholesterol) ??? Trans fat- (chemically hydrogenated)- bad raises LDL and lowers HDL (good cholesterol) ??? Polyunsaturated (natural)- ok, lowers LDL but can lower HDL ??? Monounsaturated- lowers LDL, raises HDL ??? [place] 3- lowers triglycerides, raises HDL Oils ??? [place] the best- low saturated fat, high monounsaturated ??? Canola (aka rapeseed) good- mostly monounsaturated ??? Grapeseed, Peanut, corn, soybean- more polyunsaturated ??? Coconut, palm- bad, high saturated fat [place]-3 ??? Fish- especially cold water, fatty fish (salmon) ??? Green leafy vegetables ??? Soy ??? Nuts- highest in almonds, walnuts, pine nuts ??? Flax seed oil Meat ??? Small portions- one portion the size of a deck of cards ??? As lean as possible ??? Learn to love chicken (skinless) ??? Substitute soy when possible (sausage, ground meat) Starch ??? High gfxxs-tpjpi-lqgce, whole grain: good ??? White, soft, ???melt in your mouth?? : bad ??? Dark, chewy / crunchy :good Calories ??? Fat- 9 calories/gram ??? Carbohydrate- 4 calories/gram ??? Protein- 4 calories/gram Portion Control- no seconds, no super-size Cook Book: http://www.nhlbi.nih.gov/health/public/heart/other/ktb_recipebk/ktb_recipebk.pdf documented in this encounter Progress Notes * Walter Mahajan Jr., MD - 03/17/2013 10:45 AM EDT Referring PCP: ESHA CHOWDARY MD Cardiology consultation History: Basil Landon is a 52 y.o. old male seen at the request of ESHA CHOWDARY MD for evaluation of difficult to control HTN. He was noted to have HTN when he first started being seen a few years ago and has been tried on multiple medications. He has had to stop them for various reasons, usually related to dizziness, fatigue, or not feeling well. (see scanned note for full list). He is currently tolerating terazosin at a low dose but felt poorly on 5mg. His BP has consistently run high but he has not been on a moderate or high dose of medication ever. BP at home has been running 170-180/90-100. He recently started a significant restriction of his sodium intake at his 's insistence. He denies any chest pain, palpitations, dyspnea or edema. He has no headaches. Allergies Allergen Reactions ??? Allopurinol GI upset ??? Atenolol Fatigue ??? Diltiazem LE swelling ??? Hctz/Reserpine/Hydralazine (Iilrctlzryq-Mkbkdgtae-Ezmt) Very sun/heat sensitive ??? Norvasc (Amlodipine) Flu-like symptoms Current Outpatient Prescriptions Medication Sig Dispense Refill ??? clotrimazole-betamethasone (LOTRISONE) 1-0.05 % cream Apply topically 2 times daily. ??? Magnesium 250 mg Tab Take 1 tablet by mouth daily. ??? aspirin 81 mg chewable tablet Take 81 mg by mouth daily. ??? multivitamin (THERAGRAN) tablet Take 1 tablet by mouth daily. ??? indomethacin (INDOCIN) 50 mg capsule Take 50 mg by mouth 3 times daily as needed. ??? terazosin (HYTRIN) 1 mg capsule Take 2 mg by mouth nightly. Patient Active Problem List Diagnoses ??? Hyperlipemia ??? Hypertension Coronary risk factors: Smoking:never Diabetes:no Hypercholesterolemia:? Hypertension:yes Family history of premature disease:no Cardiac tests: none SH: , lives with , works in logging, very active, drinks 8 beers a night ROS: says he feels fine, denies any issues aside from side effects from meds Physical Exam: BP 182/108 Pulse 78 Ht 170.2 cm (5' 7) Wt 88 kg (194 lb 0.1 oz) BMI 30.39 kg/m2 General: WD, mildly overweight Skin: no rash HEENT: no xanthoma Neck: No JVD, HJR, or carotid abnormalities, thyroid normal Lungs: Clear Cor: RR, normal S1, S2. PMI not displaced. No murmur or gallop Abd: soft, no L/S/K enlargement or bruits Ext: Pulses preserved, equal bilaterally, no edema, cyanosis or clubbing Musculoskeletal: no muscle tenderness, no joint deformities Neuro: grossly nonfocal Psych: normal affect, appropriate EKG: NSR 76, normal Lab data: BUN 16, Cre 0.8 Lipids reportedly high triglycerides and LDL- not available for review Assessment: 1) HTN has been difficult to control due to medication intolerance-thus he is not truly resistant HTN.He does not need endocrine or renal artery workup at this time. His exam and EKG are unremarkable. Trial of low doses of other agents combined with his low dose of terazosin are appropriate in an attempt to find a tolerable mix. I applauded his salt restriction and advised him to keep up his activity. 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 I advised him to cut it down to two a day-I am not sure how well he will comply. 2) lipids- per the patient and his he has high triglycerides (labs not available for review). They should improve with better diet and beer restriction- written instructions given Plan: 1) A discussion was held concerning the patient's chief complaints, the presumptive diagnosis(es) and the options for further evaluation and management. Reviewed the assessment above and the recommendations below in detail. 2) medical therapy - add clonidine 0.1mg BID 3) Diet and alcohol restriction as above 4) Phone check 2 weeks to get his home BP readings- follow up depends on response documented in this encounter Plan of Treatment Upcoming Encounters Date Type Department Care Team (Late st Contact Info) Description 07/06/2024 9:[address] [place] [address] Leticia Krishnamurthy MD [facility] [place] [address] 07/06/2024 10:00 AM EDT [place] [address] Leticia Krishnamurthy MD [facility] [place] [address] documented as of this encounter Visit Diagnoses Diagnosis HTN (hypertension)- Primary Unspecified essential hypertension documented in this encounter Care Teams Ripper Operator Relationship Specialty Start Date End Date Esha Chowdary MD [address] [place] [address] PCP - General 03/17/13 documented as of this encounter
--- OUTSIDE RECORDS SUMMARY | 2024-05-26 09:13 | XMS_ITS | Encounter Summary ---
[place] [address] Care Team Providers Care Consulting Networking Engineer Name Role Phone Esha Chowdary MD Primary Care Provider [phone] Encounter Details Date Type Department Care Team (Late st Contact Info) Description 05/18/2023 Ancillary Procedure [place] [phone] Esha Chowdary MD [address] [place] [id number] Social History Tobacco Use Types Packs/Day Years [...] 9:[address] [place] [address] Leticia Krishnamurthy MD [facility] [place] [address] 07/06/2024 10:00 AM EDT Office [place] [address] Leticia Krishnamurthy MD [facility] [place] [place] [address] documented as of this encounter Procedures Procedure Name Priority Date/Time Associated Diagnosis Comments FILM LIBRARY STORAGE ONLY MR HEAD Routine 05/18/2023 12:00 AM EDT documented in this encounter Results * Film Library- Storage Only MR Head (05/18/2023 12:00 AM EDT) Narrative [facility] - 05/19/2023 11:42 AM EDT This exam is auto-finalizing. It's purpose is for storage only. Esha Chowdary MD G FILM LIBRARY ORD ERABLES [place], [place] documented in this encounter Visit Diagnoses Not on filedocumented in this encounter Care Teams Consulting Networking Engineer Relationship Specialty Start Date End Date Esha Chowdary MD [address] [place] [address] PCP - General 03/17/13 documented as of this encounter
--- OUTSIDE RECORDS SUMMARY | 2024-05-26 09:13 | XMS_ITS | Encounter Summary ---
Author Organization [facility] [place] [address] Care Team Providers Care Forensics Team Director Name Role Phone Esha hCowdary MD Primary Care Provider [phone] Reason for Referral * Consultation (Routine) - Authorized Specialty Diagnoses / Procedures Referred By Tiffanie yuan Referred To Contact Neurology Diagnoses Stenosis of middle cerebral artery, unspecified laterality Esha Chowdary MD [address] [place] [address] Leticia Krishnamurthy MD [facility] [place] [address] Referral ID Status Reason Start Date Expiration Date Visits Requested Visits Authorized [id number] Authorized Consult, Test & Treat PCP Updated and/or Approved 3 09/01/2024 12 12 Encounter Details Date Type Department Care Team (Latest Contact Info) Description 09/02/2023 Transcribe Orders eDH Incoming Referrals [phone] Esha Chowdary MD [address] [place], [place] [id number] Stenosis of middle cerebral artery, unspecified laterality Social History Tobacco Use Types Packs/Day Years [...] 9:[address] [place] [address] Leticia Krishnamurthy MD [facility] [place] [address] 07/06/2024 10:00 AM EDT Office [place] [address] Leticia Krishnamurthy MD [facility] [place] [address] Scheduled Referrals Name Type Priority Associated Diagnoses Orde r Schedule Referral to Neurology Outpatient Referral Routine Stenosis of middle cerebral artery, unspecified laterality Ordered: 09/02/2023 documented as of this encounter Visit Diagnoses Diagnosis Stenosis of middle cerebral artery, unspecified laterality documented in this encounter Care Teams Forensics Team Director Relationship Specialty Start Date End Date Esha Chowdary MD [address] [place] [address] PCP - General 03/17/13 documented as of this encounter
--- OUTSIDE RECORDS SUMMARY | 2024-05-26 09:13 | XMS_ITS | Encounter Summary ---
Author Organization [facility] Address [facility] [place] [address] Care Team Providers Care Blocking Machine Operator Second Name Role Phone Esha Chowdary MD Primary Care Provider Reason for Visit * Reason Comments Genetic Evaluation * Consultation (Routine) - Closed Specialty Diagnoses / Procedures Referred By Tiffanie yuan Referred To Contact Hematology and Oncology Diagnoses Family history of prostate cancer Esha Chowdary MD [address] [place] [address] [facility] [address] [place] [address] Referral ID Status Reason Start Date Expiration Date V isits Requested Visits Authorized [id number] Closed Consult, Test & Treat PCP Updated and/or Approved 03/09/2022 03/09/2023 1 1 Encounter Details Date Type Department Care Team (Late st Contact Info) Description 08/10/2022 11:00 AM EDT TH Visit (TeleHealth) [place]ology [place] [address] Narcisa Martinez, [facility] [address] HEMATOLOGY [place] [address] Family history of prostate cancer; Family history of malignant neoplasm of breast; Family history of cancer; Family history of stomach cancer Social History Tobacco Use Types Packs/Day Years Used Date Smoking Tobacco: Never Smokeless Tobacco: Never Sex and Gender Information Value Date Recorded Sex Assigned at Not on file Gender Identity Not on file Sexual Orientation Not on file documented as of this encounter Progress Notes * Narcisa Martinez LGC - 08/10/2022 11:00 AM EDT Basil Landon was seen by DANTE Julian in consultation at the request of Esha Chowdary to advise regarding possible heritable predisposition to cancer. I spent 30 minutes of this telephone encounter with the patient gathering medical and family history and discussing the likelihood of a genetic predisposition to cancer and the option of genetic testing. Araceli, Basil's sister, was present for today's visit, with Basil's permission. Reason for referral/Chief complaint Family history of prostate cancer. Medical history Cancer hx and treatment: Basil is a 62yo male who denies any personal history of cancer. Basil has a history of a normal colonoscopy and was instructed to have follow- up colonoscopy in 10 years. Results were not available for review during today's appointment. Family History of Cancer Problem Relation Age of Onset ??? Lung Cancer Mother 68 ??? Prostate Cancer Father 68 metastatic to colon ??? Melanoma Father 72 metastatic to liver ??? Skin Cancer Father 60 ??? Cancer Maternal Grandfather throat ??? Stomach Cancer Paternal Grandmother 70 ??? Prostate Cancer Paternal Grandfather 60 suspected diagnosis ??? Rectal Cancer Paternal Grandfather 65 suspected met from prostate ??? Breast Cancer Maternal Aunt ??? Lung Cancer Maternal Aunt ??? Leukemia Maternal Uncle ??? Cancer Maternal Uncle unknown primary ??? Cancer Maternal Uncle unknown primary ??? Lung Cancer Maternal Uncle metastatic to brain ??? Skin Cancer Paternal Aunt ??? Stomach Cancer Paternal Uncle dx <65 ??? Lung Cancer Paternal Uncle ??? Brain Cancer Paternal Uncle 50 ??? Skin Cancer Niece 30 ??? Brain Cancer Maternal Cousin dx <40 ??? Breast Cancer Cousin 36 double cousin (daughter of maternal uncle and paternal aunt) Maternal ethnic background is . Paternal ethnic background is [place]. There is no known Ashkenazi Dru[place] ancestry. Genetic risk assessment Based on personal and/or family history, the likelihood that Basil would be found to have a mutation in a cancer predisposition gene is high enough to offer the option of genetic testing. Specifically, Basil meets NCCN criteria for BRCA1/2 due to the family history of breast cancer in a first cousin diagnosed at age 36 in addition to the family history of metastatic prostate cancer in Basil's father. These results will help inform Basil and his family members of their genetic cancer risks and guide cancer screening recommendations. Panel genetic testing for an inherited predisposition to cancer, including breast and prostate cancer, was discussed. The risks, benefits and limitations of panel genetic testing were reviewed, specifically a high rate of identifying a variant of uncertain significance, lack of knowledge of cancer risk for newly identified, moderate risk genes included in the panel and lack of effective screening, as well as cancer risk for other cancers not observed in the family. We reviewed dominant inheritance, meaning that if a mutation is detected there is a 50% chance for Basil's children and siblings to have also inherited the same gene alteration. Patients should be aware of the the Genetic Information Nondiscrimination Act (SAFIA), a federal lawprohibiting discrimination by health insurance companies and most employers based on genetic information. SAFIA does not apply to life insurance, disability insurance or long-term care insurance. Moreinformation about SAFIA may be found at www.GinaHelp.org. We reviewed [employer] billing policy. Basil will be notified by text and/or email regarding his estimated out of pocket cost for testing once [facility] completes their benefits investigation. At thattime, if Basil is concerned about the estimated test cost he will have the option to contact [employer] directly and either apply for [employer]'s patient assistance program to try and reduce cost of testing based on income information, cancel testing, or switch to a self-pay option of $250. If [facility]ildoes not respond to [employer], testing will be billed to his insurance as the default option. Basil opted for testing with [employer]'s Multi-Cancers Panel, a next generation sequencing panel that simultaneously analyzes 84 genes, including BRCA1 and BRCA2, that contribute to increased risk for cancer. Basil was verbally consented and will be mailed consent forms to review, sign, and return. [employer] [employer] will send a buccal swab kit with prepaid return envelope directly to Basil's home to obtain a sample. Instructions for sample collection and return are provided within the kit. Basil was instructed to postpone collecting and submitting his buccal sample until after he received the consent forms for his review. Testing will take up to 3 weeks from when the lab receives the sample. Basil will be contacted via telephone once his test results become available. If positive, we will offer a follow-up appointment. At that time, we will discuss with Basil the implications that this test result may have for him, as well as his family members. We will also provide Basil with screening guidelines for cancerprevention and early detection, as well as answer any questions he may have. documented in this encounter Plan of Treatment Upcoming Encounters Date Type Department Care Team (Late st Contact Info) Description 07/06/2024 9:[address] [place] [address] Leticia Krishnamurthy MD [facility] [place] [address] 07/06/2024 10:00 AM EDT [place] [address] Leticia Krishnamurthy MD [facility] [place] [address] Scheduled Referrals Name Type Priority Associated Diagnoses Orde r Schedule Referral to Familial Cancer Outpatient Referral Routine Family history of prostate cancer Ordered: 03/09/2022 documented as of this encounter Visit Diagnoses Diagnosis Family history of prostate cancer Family history of malignant neoplasm of prostate Family history of malignant neoplasm of breast Family history of cancer Family history of unspecified malignant neoplasm Family history of stomach cancer Family history of malignant neoplasm of gastrointestinal tract documented in this encounter Care Teams Blocking Machine Operator Second Relationship Specialty Start Date End Date Esha Chowdary MD [address] [place] [address] PCP - General 03/17/13 documented as of this encounter
--- OUTSIDE RECORDS SUMMARY | 2024-05-26 09:13 | XMS_ITS | Encounter Summary ---
Author Organization [facility] [address] Care Team Providers Care Tree Shear Operator Name Role Phone Esha Chowdary MD Primary Care Provider [phone] Encounter Details Date Type Department Care Team (Late st Contact Info) Description 05/18/2023 12:05 AM EDT Ancillary Procedure [place] [address] Esha Chowdary MD [address] [place] [id number] Social History Tobacco Use Types Packs/Day Years [...] 9:[address] [place] [address] Leticia Krishnamurthy MD [facility] [place] [address] 07/06/2024 10:00 AM EDT [place] [address] Leticia Krishnamurthy MD [facility] [place] [address] documented as of this encounter Procedures Procedure Name Priority Date/Time Associated Diagnosis Comments FILM LIBRARY STORAGE ONLY MR HEAD Routine 05/18/2023 12:05 AM EDT documented in this encounter Results * Film Library- Storage Only MR Head (05/18/2023 12:05 AM EDT) Narrative [facility] - 05/19/2023 11:42 AM EDT This exam is auto-finalizing. It's purpose is for storage only. Esha Chowdary MD IMG FILM LIBRARY ORD ERABLES Performing Organization Address City/State/[facility] Co de Phone Number [place], [place] documented in this encounter Visit Diagnoses Not on filedocumented in this encounter Care Teams Tree Shear Operator Relationship Specialty Start Date End Date Esha Chowdary MD [address] [place] [address] PCP - General 03/17/13 documented as of this encounter
--- OUTSIDE RECORDS SUMMARY | 2024-05-26 09:13 | XMS_ITS | Encounter Summary ---
Author Organization [facility] [address] Care Team Providers Care Supervisor Display Fabrication Name Role Phone Esha Chowdary MD Primary Care Provider [phone] Encounter Details Date Type Department Care Team (Late st Contact Info) Description 06/14/2023 7:30 AM EDT Tech [place] [address] [place] Peripheral vascular disease, unspecified; Hypertension, unspecified type Social History Tobacco Use Types Packs/Day Years Used Date Smoking Tobacco: Never Smokeless Tobacco: Never Sex and Gender Information Value Date Recorded Sex Assigned at Not on file Gender Identity Not on file Sexual Orientation Not on file documented as of this encounter Plan of Treatment Upcoming Encounters Date Type Department Care Team (Late Contact Info) Description 07/06/2024 9:[address] [place] [phone] Leticia Krishnamurthy MD [facility] [place] [address] 07/06/2024 10:00 AM EDT [place] [phone] Leticia Krishnamurthy MD [facility] [place] [address] documented as of this encounter Procedures Procedure Name Priority Date/Time Associated Diagnosis Comments RENAL DUPLEX COMPLETE Routine 06/14/2023 7:25 AM EDT Peripheral vascular disease, unspecified Hypertension, unspecified type documented in this encounter Results * Duplex Study Renal Arteries, Bilat (06/14/2023 7:25 AM EDT) VB Text Report Department: Vascular Surgery Lab Patient: [id number] (YOANA LANDON) CPT: 20746 Referring Physician: ESHA CHOWDARY ?? Indications: PAD with HTN, ? renal artery stenosis. Findings: Evelina Renal Aorta ? PSV (cm/s): 98 ? EDV (cm/s): 0 ? RI: 1.00 Renal Artery Mid, Right ? PSV (cm/s): 95 ? EDV (cm/s): 20 ? RAR: 1.0 ? RI: 0.79 Renal Artery Distal, Right ? PSV (cm/s): 89 ? EDV (cm/s): 23 ? RAR: 0.9 ? RI: 0.75 Upper Pole Renal Parenchyma, Right ? PSV (cm/s): 44 ? EDV (cm/s): 13 ? RI: 0.70 Lower Pole Renal Parenchyma, Right ? PSV (cm/s): 37 ? EDV (cm/s): 15 ? RI: 0.58 Renal Hilum, Right ? AT (ms): 60 Kidney Length, Right ? Length (cm): 11.6 Renal Vein, Right ? Patent: Patent Renal Artery Ostium, Left ? PSV (cm/s): 66 ? EDV (cm/s): 20 ? RAR: 0.7 Renal Artery Proximal, Left ? PSV (cm/s): 57 ? EDV (cm/s): 15 ? RAR: 0.6 ? RI: 0.74 Renal Artery Mid, Left ? PSV (cm/s): 88 ? EDV (cm/s): 26 ? RAR: 0.9 ? RI: 0.71 Renal Artery Distal, Left ? PSV (cm/s): 61 ? EDV (cm/s): 18 ? RAR: 0.6 ? RI: 0.70 Upper Pole Renal Parenchyma, Left ? PSV (cm/s): 37 ? EDV (cm/s): 15 ? RI: 0.60 Lower Pole Renal Parenchyma, Left ? PSV (cm/s): 44 ? EDV (cm/s): 11 ? RI: 0.75 Renal Hilum, Left ? AT (ms): 50 Kidney Length, Left ? Length (cm): 11.1 Renal Vein, Left ? Patent: Patent Interpretation: Right: Patent main mid to distal renal artery with no evidence of hemodynamically significant stenosis. Unable to visualize the proximal/origin of the renal artery due to bowel gas. Cannot exclude a stenosis. Left: Patent main renal artery with no evidence of hemodynamically significant stenosis. Comparison: ??No previous study in our vascular lab database for comparison. Electronically Signed by: XIAO CHOI on 2023-06-18 08:53:22 AM [facility] VB Text Report End of Report [facility] 06/14/2023 7:25 AM EDT Esha Chowdary MD VASCULAR ORDERABLES [facility] documented in this encounter Visit Diagnoses Diagnosis Peripheral vascular disease, unspecified Hypertension, unspecified type documented in this encounter Care Teams Supervisor Display Fabrication Relationship Specialty Start Date End Date Esha Chowdary MD [address] [place] [address] PCP - General 03/17/13 documented as of this encounter
--- OUTSIDE RECORDS SUMMARY | 2024-05-26 09:13 | XMS_ITS | Encounter Summary ---
[place] [address] Care Team Providers Care Dowel Pin Man Name Role Phone Esha Chowdary MD Primary Care Provider [phone] Reason for Referral * Consultation (Urgent) - Closed Specialty Diagnoses / Procedures Referred By Tiffanie yuan Referred To Contact Vascular Surgery Diagnoses Brain TIA Esha Chowdary MD [address] [place] [address] [facility] [address] [place] [address] Referral ID Status Reason Start Date Expiration Date V isits Requested Visits Authorized [id number] Closed Consult, Test & Treat 05/20/2023 05/19/2024 1 1 Encounter Details Date Type Department Care Team (Late st Contact Info) Description 05/20/2023 Transcribe Orders eDH Incoming Referrals [phone] Esha Chowdary MD [address] [place], [place] [id number] Brain TIA Social History Tobacco Use Types Packs/Day Years [...] 9:[address] [place] [address] Leticia Krishnamurthy MD [facility] [place] [address] 07/06/2024 10:00 AM EDT [place] [address] Leticia Krishnamurthy MD [facility] [place] [address] Scheduled Referrals Name Type Priority Associated Diagnoses Orde r Schedule Referral to Vascular Surgery Outpatient Referral Urgent Brain TIA Ordered: 05/20/2023 documented as of this encounter Visit Diagnoses Diagnosis Brain TIA Unspecified transient cerebral ischemia documented in this encounter Care Teams Dowel Pin Man Relationship Specialty Start Date End Date Esha Chowdary MD [address] [place] [address] PCP - General 03/17/13 documented as of this encounter
--- OUTSIDE RECORDS SUMMARY | 2024-05-26 09:13 | XMS_ITS | Encounter Summary ---
[place] [address] Care Team Providers Care Reading Instructor Name Role Phone Esha Chowdary MD Primary Care Provider [phone] Reason for Visit * Reason Comments Follow-up B/P check; Dxed with PE in April & is taking Coumadin - breathing is better Encounter Details Date Type Department Care Team (Late st Contact Info) Description 06/23/2013 1:00 PM EDT Follow-Up [facility] [address] [place] [address] Walter Mahajan Jr., MD [address] [place] [address] HTN (hypertension) (Primary Dx); Pulmonary embolism Social History Tobacco Use Types Packs/Day Years Used Date Smoking Tobacco: Never Smokeless Tobacco: Never Sex and Gender Information Value Date Recorded Sex Assigned at Not on file Gender Identity Not on file Sexual Orientation Not on file documented as of this encounter Last Filed Vital Signs Vital Sign Reading Time Taken Comments Blood Pressure 146/88 06/23/2013 1:15 PM EDT Pulse 84 06/23/2013 1:15 PM EDT regul ar Temperature - - Respiratory Rate - - Oxygen Saturation - - Inhaled Oxygen Concentration - - Weight 89.1 kg (196 lb 8 oz) 06/23/2013 1:15 PM EDT Height - - Body Mass Index 30.78 03/17/2013 10:06 AM EDT documented in this encounter Progress Notes * Walter Mahajan Jr., MD - 06/23/2013 1:22 PM EDT Subjective: Patient ID: Basil Landon is a 52 y.o. male. Chief Complaint Patient presents with ??? Follow-up B/P check; Dxed with PE in April & is taking Coumadin - breathing is better HPI He feels much better on the current medications. He is increasing his activity. BP at home has been under 140 systolic. Review of Systems awaiting hematology workup for ? Clotting disorder Allergies Allergen Reactions ??? Allopurinol GI upset ??? Atenolol Fatigue ??? Diltiazem LE swelling ??? Hctz/Reserpine/Hydralazine (Ovzxwqfochd-Zaglkrqkf-Zabp) Very sun/heat sensitive ??? Norvasc (Amlodipine) Flu-like symptoms Current Outpatient Prescriptions Medication Status Sig Dispense Refill ??? warfarin (COUMADIN) 5 mg tablet Active Take 5 mg by mouth daily. As directed by PCP ??? colchicine (COLCRYS) 0.6 mg tablet Active Take 0.6 mg by mouth daily. ??? ALLOPURINOL ORAL Active Take by mouth daily. 50 mg x2 weeks; then 100 mg QD ??? predniSONE (DELTASONE) 5 mg tablet Active Take 5 mg by mouth daily as needed. ??? cloNIDine (CATAPRES) 0.1 mg tablet Active Take 0.2 mg by mouth 2 times daily. ??? aspirin 81 mg chewable tablet Active Take 81 mg by mouth daily. ??? multivitamin (THERAGRAN) tablet Active Take 1 tablet by mouth daily. ??? terazosin (HYTRIN) 1 mg capsule Active Take 2 mg by mouth nightly. ??? clotrimazole-betamethasone (LOTRISONE) 1-0.05 % cream Discontinued Apply topically 2 times daily. Patient Active Problem List Diagnosis ??? Hyperlipemia ??? Hypertension Pulmonary Embolism Objective: Physical Exam BP 146/88 Pulse 84 Wt 89.132 kg (196 lb 8 oz) NAD No JVD/HJR Chest clear Cor RR, no murmur Abd benign Ext no edema Assessment and Plan: Improved BP, tolerating meds-continue as is Follow up 6 months documented in this encounter Plan of Treatment Upcoming Encounters Date Type Department Care Team (Late st Contact Info) Description 07/06/2024 9:[address] [place] [address] Leticia Krishnamurthy MD [facility] [place] [address] 07/06/2024 10:00 AM EDT [place] [address] Leticia Krishnamurthy MD [facility] [place] [place] [address] documented as of this encounter Visit Diagnoses Diagnosis HTN (hypertension)- Primary Unspecified essential hypertension Pulmonary embolism Other pulmonary embolism and infarction documented in this encounter Care Teams Reading Instructor Relationship Specialty Start Date End Date Esha Chowdary MD [address] [place] [address] PCP - General 03/17/13 documented as of this encounter
--- OUTSIDE RECORDS SUMMARY | 2024-05-26 09:13 | XMS_ITS | Encounter Summary ---
[place] [address] Care Team Providers Care Pump Attendant Name Role Phone Esha Chowdary MD Primary Care Provider [phone] Reason for Visit * Consultation (Routine) - Closed Specialty Diagnoses / Procedures Referred By Tiffanie yuan Referred To Contact Rheumatology Diagnoses Pain in unspecified joint Esha Chowdary MD [address] [place] [id number] [facility] [place] [facility] [address] [place] [phone] Referral ID Status Reason Start Date Expiration Date V isits Requested Visits Authorized [id number] Closed Consult, Test & Treat Connection Center PCP Updated and/or Approved 03/31/2021 03/31/2022 6 6 Encounter Details Date Type Department Care Team (Latest Contact Info) Description 04/23/2021 2:30 PM EDT Office [place] [address] Horace Mcclnedon, [facility] [place] [address] Osteoarthritis, unspecified osteoarthritis type, unspecified site (Primary Dx); Left hand pain; Right hand pain Social History Tobacco Use Types Packs/Day Years [...] 04/23/2021 2:15 PM ED T Respiratory Rate - - Oxygen Saturation 98% 04/23/2021 2:15 PM EDT Inhaled Oxygen Concentration - - Weight 83 kg (183 lb) 04/23/2021 2:15 PM EDT Height 168.5 cm (5' 6.34) 04/23/2021 2:15 PM ED T Body Mass Index 29.24 04/23/2021 2:15 PM EDT documented in this encounter Progress Notes * Horace Mcclendon, DO - 04/23/2021 2:30 PM EDT Rheumatology Outpatient Consultation Note Reason for Consult: The patient is seen at the request of Dr. Esha Chowdary MD for evaluation and treatment of joint pain. History of Present Illness: Basil Landon is a 60 y.o. male who presents today for evaluation of joint pain. He is accompanied by his sister who helps provide the history. Basil reports to be feeling well today. His main concern is regarding chronic joint pain involving his hands, knees, and ankles. These symptoms have limited his physical activity level and are affecting his quality of life. 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 His symptoms worsened over the past winter, during which he was active chainsawing for fire wood. Basil explains his hands started bothering him more after increased chainsawing last winter. He describes the pain as a throbbing, ache. High Impact tools with vibration worsens these symptoms He experiences stiffness in the AM - even without chainsawing - which lasts for hours The cold worsens his symptoms. There are times when he cannot use the chainsaw for a few days because of increased pain and stiffness in the hands. His Knees have been a Chronic issue which has been worsening this past winter Certain movements worsen the pain. The left knee may swell occasionally. He experiences knee stiffness occasionally, the AM stiffness improves with use He also experiences a gelling effect after prolonged inactivity He has a history of left leg fracture (tibial). His ankle pain is also a chronic issue. They feel stiff and loosen with activity He has experienced right lateral foot pain intermittently- no swelling No history of joint replacements He does not take NSAIDs or OTC medications He has a history of Scalp PsO which is currently inactive. PsO has affected his arms in the past but not recently. ROS: All systems reviewed and are negative except as in HPI PMHx - PE, DVT - on apixaban - Alcohol use - HLD - HTN - chronic tohpaceous gout - on febuxostat 40mg daily and chronic prednisone Family Hx: Gout - father, brother PsO - sister Arthritis - mother Diverticulitis and IBS - sister Social Hx - alcohol 5-6 beers daily - no tobacco Physical Examination: BP 193/78 Pulse 72 Temp 36.6 ??C (97.8 ??F) (Temporal) Ht 168.5 cm (5' 6.34) Wt 83 kg (183lb) SpO2 98% BMI 29.24 kg/m?? General: Pleasant, NAD Eyes: No scleral icterus or conjunctival injection Skin: (-)ulcers, (-)rash (-) psoriasis Lymph: no anterior or posterior cervical LAD Cardiovascular: RR, (-)murmurs, rubs, or gallops. Lungs: Clear to auscultation bilaterally. (-)R/R/W Neuro: Alert and oriented x3 Non focal Extremities: No cyanosis, clubbing or edema MSK: Shoulders: FROM, non-tender to palpation Elbows:FROM, (-)pain, (-)nodules Wrists: FROM, no swelling, non-tender Hands: No synovitis, no MCP compression tenderness, reduced claw and fist - tender and [id number] DIP on the left hand Knees: FROM bilaterally with crepitus and tenderness to palpation of joint lines; no effusion or synovitis Ankles: FROM bilaterally no synovitis or effusion mild tenderness anteriorly; no posterior heel or plantar foot pain, no enthesitis Feet: Hallux valgus, no MTP compression tenderness MSK U/S - Limited exam of left hand - Indication: hand pain, osteoarthritis - Machine: BK - Findings: Orthogonal views of the dorsal, palmar, and lateral 2nd MCP were obtained in marie scaleand power Doppler. There was no hyperechoic thickening of the metacarpophalangeal joint. There wereno cortical breaks and no tendon or tendon sheath abnormalities in the dorsal or palmar compartments. Orthogonal views of the dorsal 2nd DIP were obtained in marie scale and power Doppler. Osteophytes present. There was no hyperechoic thickening of the metacarpophalangeal joint. There were no corticalbreaks and no tendon or tendon sheath abnormalities in the dorsal or palmar compartments. Impression: No signs of synovitis or tendinopathy Evidence of osteophyte formation at 2nd DIP joint which is indicative of osteoarthritis. Laboratory Data: RF, MIKKI negative Lyme screen negative Uric acid (03/2021) - 3.9 CRP and ESR normal (03/2021) Ast, ALT normal , sCr normal (03/2021) CBC - PLT 123 (03/2021) Impression: Basil Landon is a 60 y.o. 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 MSK ultrasound today of the left 2nd finger shows signs of osteoarthritis at the DIP joint, without evidence of dactylitis. The tender erythematous DIP joint is most likely secondary to an emerging osteophyte and should self-resolve. X rays taken today confirm the pres ence of degenerative arthritis in the hands, knees and ankles without evidence of inflammatory arthritis. We discussed management of osteoarthritis including physical therapy for quadricept strengthening and pain control with tylenol arthritis. Topical diclofenac gel is a fine option for Basil due to his multiple co morbidities that preclude the use of oral NSAIDs. His gout is well controlled and I do not see evidence of active gout on physical exam today. Recommendations: Conservative management of osteoarthritis affecting the hands, knees, and ankles - including physical therapy, activity modification, topical diclofenac gel, and tylenol arthritis. No further rheumatologic work up indicated at this time. RTC as needed Thank you for involving me in the care of Basil Landon. If you have additional questions or if Ican be of further assistance, please do not hesitate to contact me. Horace Mcclendon, [facility] [place] 80 minutes were spent on face to face care, chart review, and documentation today CC: Esha Chowdary MD documented in this encounter Plan of Treatment Upcoming Encounters Date Type Department Care Team (Late st Contact Info) Description 07/06/2024 9:[address] [place] [address] Leticia Krishnamurthy MD [facility] [place] [address] 07/06/2024 10:00 AM EDT [place] [phone] Leticia Krishnamurthy MD [facility] [place] [address] Scheduled Orders Name Type Priority Associated Diagnoses Orde r Schedule XR Knee 3 Views Left Imaging Routine Osteoarthritis, Unspecified Osteoarthritis Type, Unspecified Site Expected: 04/23/2021, Expires: 10/23/2021 documented as of this encounter Results * XR Hand Min 3 views Bilat (Generic) (04/23/2021 4:25 PM EDT) Anatomical Region Laterality Modality Hand Bilateral Digital Radiogra phy Impressions 04/23/2021 4:43 PM EDT Left hand: Metallic density radiopaque foreign body as described above. Moderate osteoarthropathy of the first CMC. Right hand: Severe osteoarthropathy of the third PIP with malalignment. Mild osteoarthropathy of the first MCP. No erosions. Thank you for letting us participate in the care of this patient. ??If you are a health care provider and have any questions regarding this report, please contact the number below. ??For patients who have questions please contact the health special needs caregiver that requested your imaging first. ? Narrative 04/23/2021 4:43 PM EDT EXAMINATION: XR HAND MIN 3 VIEWS BILAT (GENERIC) CLINICAL HISTORY: pain, stiffness - evaluate for OA vs inflammatory arthitis TECHNIQUE: 4 views BILATERAL hands COMPARISON: None FINDINGS: Left hand: No acute fracture. There are 3 metallic density foreign bodies, measuring up to 3 mm, within the soft tissues, adjacent to the fifth metacarpal, first metacarpal, and first proximal phalanx. No erosions. There is osteophytes and moderate joint space narrowing at the first CMC. Normal alignment. Right hand: No fracture. No erosions. Large osteophytes at the third PIP joint. The joint is ulnarly subluxed and ulnarly angulated. There is severe third PIP joint space narrowing. Additional small osteophytes at the first MCP joint with mild joint space narrowing. Procedure Note Lam Soto MD - 04/23/2021 EXAMINATION: XR HAND MIN 3 VIEWS BILAT (GENERIC) CLINICAL HISTORY: pain, stiffness - evaluate for OA vs inflammatoryarthitis TECHNIQUE: 4 views BILATERAL hands COMPARISON: None FINDINGS: Left hand: No acute fracture. There are 3 metallic density foreignbodies, measuring up to 3 mm, within the soft tissues, adjacent to the fifthmetacarpal, first metacarpal, and first proximal phalanx. No erosions. There isosteophytes and moderate joint space narrowing at the first CMC. Normal alignment. Right hand: No fracture. No erosions. Large osteophytes at the third PIPjoint. The joint is ulnarly subluxed and ulnarly angulated. There is severe thirdPIP joint space narrowing. Additional small osteophytes at the first MCP jointwith mild joint space narrowing. IMPRESSION Left hand: Metallic density radiopaque foreign body as described above. Moderate osteoarthropathy of the first CMC. Right hand: Severe osteoarthropathy of the third PIP with malalignment. Mild osteoarthropathy of the first MCP. No erosions. Thank you for letting us participate in the care of this patient. If youare a health care provider and have any questions regarding this report,please contact the number below. For patients who have questions please contactthe health special needs caregiver that requested your imaging first. Electronically signed by: Lam Soto MD, [facility]([phone]), at 04/23/2021 4:43 PM Horace Mcclendon DO IMG DX ORDERABLES documented in this encounter Visit Diagnoses Diagnosis Osteoarthritis, unspecified osteoarthritis type, unspecified site- Primary Left hand pain Pain in limb Right hand pain Pain in limb Osteoarthritis, unspecified osteoarthritis type, unspecified site Left hand pain Pain in limb Right hand pain Pain in limb documented in this encounter Care Teams Pump Attendant Relationship Specialty Start Date End Date Esha Chowdary MD [address] [place] [address] PCP - General 03/17/13 documented as of this encounter
--- OUTSIDE RECORDS SUMMARY | 2024-05-26 09:13 | XMS_ITS | Encounter Summary ---
Author Organization [facility] [address] [facility] [place] [address] Care Team Providers Care Workday Senior Associate Name Role Phone Esha Chowdary MD Primary Care Provider [phone] Encounter Details Date Type Department Care Team (Late st Contact Info) Description 08/05/2022 Telephone Hematology [place] [phone] Malik Martin MD [facility] DR HEMATOLOGY/[place] [address] Social History Tobacco Use Types Packs/Day Years Used Date Smoking Tobacco: Never Smokeless Tobacco: Never Sex and Gender Information Value Date Recorded Sex Assigned at Not on file Gender Identity Not on file Sexual Orientation Not on file documented as of this encounter Miscellaneous Notes * Telephone Encounter - Malik Martin MD - 08/05/2022 8:30 PM EDT Heme-Onc Staff I have reviewed the patient's record and, given personal and/or family history of cancer he should be seen by a genetic counselor. This is scheduled for next week. Malik Martin MD chief payroll clerk in Hematology-Oncology documented in this encounter Plan of Treatment Upcoming Encounters Date Type Department Care Team (Late st Contact Info) Description 07/06/2024 9:[address] [place] [address] Leticia Krishnamurthy MD [facility] [place] [address] 07/06/2024 10:00 AM EDT Office [place] [address] Leticia Krishnamurthy MD [facility] [place] [address] documented as of this encounter Visit Diagnoses Not on filedocumented in this encounter Care Teams Workday Senior Associate Relationship Specialty Start Date End Date Esha Chowdary MD [address] [place] [address] PCP - General 03/17/13 documented as of this encounter
--- OUTSIDE RECORDS SUMMARY | 2024-05-26 09:13 | XMS_ITS | Encounter Summary ---
[place] [address] Care Team Providers Care Blow Molding Machine Tender Name Role Phone Esha Chowdary MD Primary Care Provider [phone] Reason for Visit * Reason Onset Date Comments Reminder Appointment 01/26/2024 Encounter Details Date Type Department Care Team (Late st Contact Info) Description 01/26/2024 [place] [address] Leticia Krishnamurthy MD [facility] [place] [address] Reminder Appointment Social History Tobacco Use Types Packs/Day Years Used Date Smoking Tobacco: Never Smokeless Tobacco: Never Sex and Gender Information Value Date Recorded Sex Assigned at Not on file Gender Identity Not on file Sexual Orientation Not on file documented as of this encounter Miscellaneous Notes * Telephone Encounter - Gisela Aguiar CMA - 01/26/2024 9:55 AM EDT Unable to reach this patient by phone to review their medications and allergies prior to their upcoming tele-appointment with the Neurology provider. No message left. documented in this encounter Plan of Treatment Upcoming Encounters Date Type Department Care Team (Late st Contact Info) Description 07/06/2024 9:[address] [place] [address] Leticia Krishnamurthy MD [facility] [place] [address] 07/06/2024 10:00 AM EDT [place] [address] Leticia Krishnamurthy MD [facility] [place] [address] documented as of this encounter Visit Diagnoses Not on filedocumented in this encounter Care Teams Blow Molding Machine Tender Relationship Specialty Start Date End Date Esha Chowdary MD [address] [place] [address] PCP - General 03/17/13 documented as of this encounter
--- OUTSIDE RECORDS SUMMARY | 2024-05-26 09:13 | XMS_ITS | Encounter Summary ---
[place] [address] Care Team Providers Care Virologist Name Role Phone Esha Chowdary MD Primary Care Provider [phone] Reason for Referral * Consultation (Routine) - Closed Specialty Diagnoses / Procedures Referred By Tiffanie yuan Referred To Contact Hematology and Oncology Diagnoses Family history of prostate cancer Esha Chowdary MD [address] [place] [address] [facility] [place] [facility] [place] [address] [place] [address] Referral ID Status Reason Start Date Expiration Date V isits Requested Visits Authorized [id number] Closed Consult, Test & Treat PCP Updated and/or Approved 03/09/2022 03/09/2023 1 1 Encounter Details Date Type Department Care Team (Latest Contact Info) Description 03/09/2022 Transcribe Orders eDH Incoming Referrals [phone] Esha Chowdary MD [address] [place] [address] Family history of prostate cancer Social History Tobacco Use Types Packs/Day [...] 9:[address] [place] [place] [address] Leticia Krishnamurthy MD [facility] [place] [address] 07/06/2024 10:00 AM EDT [place] [address] Leticia Krishnamurthy MD [facility] [place] [address] Scheduled Referrals Name Type Priority Associated Diagnoses Orde r Schedule Referral to Familial Cancer Outpatient Referral Routine Family history of prostate cancer Ordered: 03/09/2022 documented as of this encounter Visit Diagnoses Diagnosis Family history of prostate cancer Family history of malignant neoplasm of prostate documented in this encounter Care Teams Virologist Relationship Specialty Start Date End Date Esha Chowdary MD [address] [place] [address] PCP - General 03/17/13 documented as of this encounter
--- OUTSIDE RECORDS SUMMARY | 2024-05-26 09:13 | XMS_ITS | Encounter Summary ---
Author Organization [facility] [place] [address] Care Team Providers Care Claim Service Representative Name Role Phone Esha Chowdary MD Primary Care Provider [phone] Reason for Visit * Reason Onset Date Comments Results 09/01/2022 Encounter Details Date Type Department Care Team (Late st Contact Info) Description 09/01/2022 Telephone Hematology [place] [address] Narcisa Martinez [facility] [address] [place]AT[place]Y [place] [address] Results Social History Tobacco Use Types Packs/Day Years Used Date Smoking Tobacco: Never Smokeless Tobacco: Never Sex and Gender Information Value Date Recorded Sex Assigned at Not on file Gender Identity Not on file Sexual Orientation Not on file documented as of this encounter Miscellaneous Notes * Telephone Encounter - Narcisa Martinez [facility] - 09/03/2022 10:14 AM EDT This test result was discussed with the patient by phone. A copy of the test results have been scanned in the medical record and sent to Basil. A summary of the results is provided below. Please beadvised that [place] law requires that all health care workers respect the confidentiality ofthis information and not pass it along to other health care providers, insurance companies, or individuals without the written permission of the patient. The Familial Cancer Program welcomes any questions about these matters. Our phone number is: [phone]. On 08/10/2022 Basil was seen for genetic counseling and subsequently underwent genetic testing for a hereditary predisposition to cancers in eight major organ systems including breast, gynecologic,gastrointestinal, endocrine, genitourinary, skin, brain/nervous system, sarcoma and hematologic. Following are the results of this test. Result: [facility]'s Multi-Cancer Panel showed no mutation was detected. This means that Basil does not carry a mutation in the genes detectable by this test. The following 84 genes were evaluated for sequence changes and exonic deletions/duplications: AIP, ALK, APC, JOSE, AXIN2, BAP1, BARD1, BLM, BMPR1A, BRC A1, BRCA2, BRIP1, CASR, CDC73, CDH1, CDK4, CDKN1B, CDKN1C, CDKN2A (p14ARF), CDKN2A ([id number]), CEBPA, CHEK2, CTNNA1, DICER1, DIS3L2, EGFR, EPCAM (Deletion/duplication testing only), FH, FLCN, GATA2, GPC3, GREM1 (Promoter region deletion/duplication testing only), HOXB13, HRAS, KIT, MAX, MEN1, MET, M ITF, (c.952G>A,P.Qov817Owo variant only), MLH1, MSH2, MSH3, MSH6, MUTYH, NBN, NF1, NF2, NTHL1, PALB2, PDGFRA, PHOX2B, PMS2, POLD1, POLE, POT1, GDYVM6N, PTCH1, PTEN, RAD50, RAD51C, RAD51D, RB1, RECQL4, RET, RUNX1, SDHA, SDHAF2, SDHB, SDHC, SDHD, SMAD4, SMARCA4, SMARCB1, SMARCE1, STK11, SUFU, TERC, TERT, TGUL895, TP53, TSC1, TSC2, VHL, WRN, and WT1. A variant of uncertain significance (VUS) was detected in the BARD1 gene, specifically c.709C>G (p.Yve214Jim). Interpretation: This test did not identify an underlying genetic cause for the family history of cancer. Possible explanations for this uninformative negative test result include: ?? The cancer in Basil's family may be due to non genetic, environmental causes. ?? There could be a mutation in Basil's family that Basil did not inherit ?? There could be mutations in other cancer genes not included in this test, or in genes yet to be discovered. ?? There is a very small chance that a pathogenic variant/mutation could be missed due to limitations in the testing. Additional genetic testing for Basil is not recommended at this time. It is unclear at this time whether the BARD1 VUS identified in Basil is a cancer-associated mutation or a benign change in the gene with no increased cancer risks. [facility] is continually collectingand analyzing their data, in an effort to reclassify these variants as either cancer-causing mutations or benign changes. It is important to remember that a vast majority of variants of uncertain significance are normal, benign changes in the gene. We will be contacted by the laboratory, in the future, if a reclassification is made and we would then notify Basil. It is important that Basil's phone number and mailing address stay updated in the [facility] system, in order for us to reach him in the future, should an amended reportbe issued. Family members should NOT be tested for the variant of uncertain significance identifiedin Basil in order to find out their own cancer risks. Screening Recommendations Based on genetic test results and personal and/or family history, we recommend: Prostate cancer screening ?? Consideration of PSA and/or GRISELDA screening, as recommended by Basil's primary care provider. Colon cancer screening ?? Baseline colorectal cancer screening starting by age 45-50 is important for everyone, regardlessof genetic predisposition. If Basil hasn't begun screening yet he should discuss the available screening options with his primary care provider. ?? Periodic colonoscopy screening as recommended by Basil's postal worker. Skin cancer screening ?? Skin cancer screening and sun protection are important for everyone, regardless of genetic predisposition. ?? Consideration of routine dermatologic/skin exams, as recommended by Basil's primary care provider or form carpenter. documented in this encounter Plan of Treatment Upcoming Encounters Date Type Department Care Team (Late st Contact Info) Description 07/06/2024 9:[address] [place] [address] Leticia Krishnamurthy MD [facility] [place] [address] 07/06/2024 10:00 AM EDT [place] [address] Leticia Krishnamurthy MD [facility] [place] [address] documented as of this encounter Visit Diagnoses Not on filedocumented in this encounter Care Teams Claim Service Representative Relationship Specialty Start Date End Date Esha Chowdary MD [address] [place] [address] PCP - General 03/17/13 documented as of this encounter
--- OUTSIDE RECORDS SUMMARY | 2024-05-26 09:13 | XMS_ITS | Encounter Summary ---
[place] [address] Care Team Providers Care Packaging Coordinator Name Role Phone Esha Chowdary MD Primary Care Provider [phone] Encounter Details Date Type Department Care Team (Late st Contact Info) Description 05/18/[address] [address] Walter Mahajan Jr., MD [address] [place] [address] Social History Tobacco Use Types Packs/Day Years Used Date Smoking Tobacco: Never Smokeless Tobacco: Never Sex and Gender Information Value Date Recorded Sex Assigned at Not on file Gender Identity Not on file Sexual Orientation Not on file documented as of this encounter Miscellaneous Notes * Telephone Encounter - Mehreen Martinez - 05/25/2013 1:11 PM EDT Pt's was called and given an appt for her on 06/23/13 at 1:00 pm at the [facility]. * Telephone Encounter - Ashlyn Talbot RN - 05/25/2013 12:05 PM EDT Called and talked to his daughter and she says that they saw a rheumotologist and they decreased his terazozin and started him on prednisone. He is on coumadin too. She says that his blood pressure has been lower, 100/68 - 133/80. He has no follow up appt with us so I will ask Mehreen to make on. She says that he will not answer his phone so she takes all his medical calls. * Telephone Encounter - Ashlyn Talbot RN - 05/18/2013 9:32 AM EDT Called and left message to call us back * Telephone Encounter - Ashlyn Talbot RN - 05/18/2013 9:27 AM EDT Walter Mahajan Jr., MD 05/02/2013 10:41 AM Signed Ok, unlikely clonidine causing gout See how he feels off it Vianney Phelps RN 05/02/2013 9:53 AM Signed Spoke with patient's - he is having a lot of gout pain in feet & elbow - worse since increasing Clonidine dose. B/P is better - 125/82 this am. He plans to stop med for 2 days & see if pain is better. They will call & let us know how is &keep track of B/P. 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 We have the ED report. Celsa Mahajan RN 05/01/2013 10:20 AM Signed Called and left message for pt to call us and let us know how his BP is doing. Ashlyn Talbot RN 04/10/2013 3:26 PM Signed Left message on home phone and cell Walter Mahajan Jr., MD 04/10/2013 3:16 PM Signed Increase clonidine to 0.2 mg BID and try anti acids at bedtime Phone check 2 weeks to see how BP doing Ashlyn Talbot RN 04/10/2013 3:11 PM Signed His b/ps have been running 150's/80's but he has a sensation of his heart pounding at night and complaining to his that he thinks he may have heartburn. She said that it may be related to eating, I suggested some antacids to see if that helps and he has a visit with his PCP in the next week and I told her to make sure he keeps that so he can have that discomfort evaluated. Juan Mehreen G 03/17/2013 1:52 PM Signed Pt is to call with his BP readings in two weeks, which should be the week of 04/03/13. documented in this encounter Plan of Treatment Upcoming Encounters Date Type Department Care Team (Late st Contact Info) Description 07/06/2024 9:[address] [place] [address] Leticia Krishnamurthy MD [facility] [place] [address] 07/06/2024 10:00 AM EDT [place] [address] Leticia Krishnamurthy MD [facility] [place] [address] documented as of this encounter Visit Diagnoses Not on filedocumented in this encounter Care Teams Packaging Coordinator Relationship Specialty Start Date End Date Esha Chowdary MD [address] [place] [address] PCP - General 03/17/13 documented as of this encounter
--- OUTSIDE RECORDS SUMMARY | 2024-05-26 09:13 | XMS_ITS | Encounter Summary ---
[place] [address] Care Team Providers Care Tunnel Mucker Name Role Phone Esha Chowdary MD Primary Care Provider [phone] Reason for Visit * Reason Onset Date Comments Other 04/24/2021 Encounter Details Date Type Department Care Team (Late st Contact Info) Description 04/24/2021 [place] [id number] Star Pride RN Other Social History Tobacco Use Types Packs/Day Years Used Date Smoking Tobacco: Never Smokeless Tobacco: Never Sex and Gender Information Value Date Recorded Sex Assigned at Not on file Gender Identity Not on file Sexual Orientation Not on file documented as of this encounter Miscellaneous Notes * Telephone Encounter - Star Pride RN - 04/24/2021 10:59 AM EDT Horace Mcclendon, DO sent to Star Pride RN Hi Marcus, Please let Basil know his X rays (knees, ankles, hands) Showed signs of osteoarthritis. There areno signs of inflammatory arthritis like psoriatic arthritis or rheumatoid arthritis. This can be further managed by his primary care provider, and he does not need a follow up with us in Rheumatology. Thank you Lew RTC to Basil/Araceli his sister, who schedules his appointments, and left a message with a call back number, stating the above information from Dr. Mcclendon. documented in this encounter Plan of Treatment Upcoming Encounters Date Type Department Care Team (Late st Contact Info) Description 07/06/2024 9:[address] [place] [address] Leticia Krishnamurthy MD [facility] [place] [address] 07/06/2024 10:00 AM EDT [place] [address] Leticia Krishnamurthy MD [facility] [place] [address] documented as of this encounter Visit Diagnoses Not on filedocumented in this encounter Care Teams Tunnel Mucker Relationship Specialty Start Date End Date Esha Chowdary MD [address] [place] [address] PCP - General 03/17/13 documented as of this encounter
--- OUTSIDE RECORDS SUMMARY | 2024-05-26 09:13 | XMS_ITS | Encounter Summary ---
Author Organization [facility] [place] [address] Care Team Providers Care Pricing Lead Name Role Phone Esha Chowdary MD Primary Care Provider [phone] Encounter Details Date Type Department Care Team (Late st Contact Info) Description 06/08/2023 9:20 PM EDT Ancillary Procedure [place]iology [place] [phone] Esha Chowdary MD [address] [place] [id number] Social History Tobacco Use Types Packs/Day Years [...] 9:[address] [place] [phone] Leticia Krishnamurthy MD [facility] [place] [address] 07/06/2024 10:00 AM EDT Office [place] [phone] Leticia Krishnamurthy MD [facility] [place] [address] documented as of this encounter Procedures Procedure Name Priority Date/Time Associated Diagnosis Comments FILM LIBRARY STORAGE ONLY CT HEAD Routine 06/08/2023 9:17 PM EDT documented in this encounter Results * Film Library- Storage Only CT Head (06/08/2023 9:17 PM EDT) Narrative [facility] - 06/08/2023 9:17 PM EDT This exam is auto-finalizing. It's purpose is for storage only. Esha Chowdary MD IMG FILM LIBRARY ORD ERABLES Performing Organization Address City/State/[facility] Co de Phone Number [place], [place] documented in this encounter Visit Diagnoses Not on filedocumented in this encounter Care Teams Pricing Lead Relationship Specialty Start Date End Date Esha Chowdary MD [address] [place] [address] PCP - General 03/17/13 documented as of this encounter
--- OUTSIDE RECORDS SUMMARY | 2024-05-26 09:13 | XMS_ITS | Encounter Summary ---
Author Organization [facility] Address [facility] [place] [address] Care Team Providers Care Elementary [employer] Counselor Name Role Phone Esha Chowdary MD Primary Care Provider [phone] Encounter Details Date Type Department Care Team (Latest Contact Info) Description 04/23/2021 3:29 PM EDT - 04/23/2021 11:59 PM EDT Hospital Encounter XRay at [address] [place] [address] Horace Mcclendon, [facility] [place] [address] Osteoarthritis, unspecified osteoarthritis type, unspecified site; Left hand pain; Right hand pain Discharge Disposition: Home Social History Tobacco Use Types Packs/Day Years Used Date Smoking Tobacco: Never Smokeless Tobacco: Never Sex and Gender Information Value Date Recorded Sex Assigned at Not on file Gender Identity Not on file Sexual Orientation Not on file documented as of this encounter Medications at Time of Discharge Medication Sig Dispensed Refills Start Date End Date Uloric 40 mg Tablet daily. 03/24/2021 Eliquis 5 mg Tablet 2 times daily. 03/17/2021 predniSONE (DELTASONE) 5 mg tablet Take 2.5 mg by mouth daily. In addition to 10mg prn cloNIDine (CATAPRES) 0.1 mg tablet Take 0.2 mg by mouth 2 times daily. terazosin (HYTRIN) 1 mg capsule Take 7 mg by mouth nightly. warfarin (COUMADIN) 5 mg tablet Take 5 mg by mouth daily. As directed by PCP 02/09/2024 colchicine (COLCRYS) 0.6 mg tablet Take 0.6 mg by mouth daily. 02/09/2024 aspirin 81 mg chewable tablet Take 81 mg by mouth daily. 02/09/2024 multivitamin (THERAGRAN) tablet Take 1 tablet by mouth daily. 02/09/2024 documented as of this encounter Plan of Treatment Upcoming Encounters Date Type Department Care Team (Late st Contact Info) Description 07/06/2024 9:[address] [place] [address] Leticia Krishnamurthy MD [facility] [place] [address] 07/06/2024 10:00 AM EDT [place] [phone] Leticia Krishnamurthy MD [facility] [place] [address] Scheduled Orders Name Type Priority Associated Diagnoses Orde r Schedule XR Knee 3 Views Left Imaging Routine Osteoarthritis, Unspecified Osteoarthritis Type, Unspecified Site 1 Occurrences starting 04/23/2021 until 04/23/2021 documented as of this encounter Procedures Procedure Name Priority Date/Time Associated Diagnosis Comments XR HAND MIN 3 VIEWS BILAT Routine 04/23/2021 4:25 PM EDT Osteoarthritis, unspecified osteoarthritis type, unspecified site Left hand pain Right hand pain XR ANKLE MIN 3 VIEWS BILAT Routine 04/23/2021 4:25 PM EDT Osteoarthritis, unspecified osteoarthritis type, unspecified site XR KNEE AP LAT AXIAL PATELLA BILAT Routine 04/23/2021 4:25 PM EDT Osteoarthritis, unspecified osteoarthritis type, unspecified site documented in this encounter Results * XR Knee 3 Views Bilat (04/23/2021 4:25 PM EDT) Anatomical Region Laterality Modality Knee Bilateral Digital Radiogra phy Impressions 04/23/2021 4:55 PM EDT Moderate to severe right and mild left knee arthropathy. I have personally reviewed the image(s) and the resident's interpretation and agree with the findings, Lam Soto MD at 04/23/2021 4:55 PM Thank you for letting us participate in the care of this patient. ??If you are a health care provider and have any questions regarding this report, please contact the number below. ??For patients who have questions please contact the health career and guidance counselor that requested your imaging first. ? Narrative 04/23/2021 4:55 PM EDT EXAMINATION: XR KNEE 3 VIEWS BILAT CLINICAL HISTORY: pain, stiffness, eval for OA TECHNIQUE: 3 views BILATERAL knee COMPARISON: None FINDINGS: Right: No fracture or dislocation. Moderate to severe medial compartment joint space narrowing. Tricompartmental osteophytes. Quadriceps enthesophyte. Small knee joint effusion. Left: No fracture or dislocation. Mild medial compartment joint space narrowing. Quadriceps enthesophyte. Chronic, healed fractures of the proximal tibia and fibula. No knee joint effusion. Procedure Note Lam Soto MD - 04/23/2021 EXAMINATION: XR KNEE 3 VIEWS BILAT CLINICAL HISTORY: pain, stiffness, eval for OA TECHNIQUE: 3 views BILATERAL knee COMPARISON: None FINDINGS: Right: No fracture or dislocation. Moderate to severe medial compartmentjoint space narrowing. Tricompartmental osteophytes. Quadriceps enthesophyte.Small knee joint effusion. Left: No fracture or dislocation. Mild medial compartment joint spacenarrowing. Quadriceps enthesophyte. Chronic, healed fractures of the proximal tibiaand fibula. No knee joint effusion. IMPRESSION Moderate to severe right and mild left knee arthropathy. I have personally reviewed the image(s) and the resident's interpretationand agree with the findings, Lam Soto MD at 04/23/2021 4:55 PM Thank you for letting us participate in the care of this patient. If youare a health care provider and have any questions regarding this report,please contact the number below. For patients who have questions please contactthe health career and guidance counselor that requested your imaging first. Horace Brandon Mcclendon DO IMG DX ORDERABLES * XR Ankle Min 3 views Bilat (Generic) (04/23/2021 4:25 PM EDT) Anatomical Region Laterality Modality Ankle Bilateral Digital Radiogra phy Impressions 04/23/2021 4:43 PM EDT 1. ??Bilateral tibiotalar and midfoot osteoarthropathy. 2. ??Probable small left tibiotalar joint effusion is nonspecific. Thank you for letting us participate in the care of this patient. ??If you are a health care provider and have any questions regarding this report, please contact the number below. ??For patients who have questions please contact the health career and guidance counselor that requested your imaging first. ? Narrative 04/23/2021 4:43 PM EDT EXAMINATION: XR ANKLE MIN 3 VIEWS BILAT (GENERIC) CLINICAL HISTORY: pain, stiffness - evaluate for signs of OA (as entered by ordering provider in the order requisition) TECHNIQUE: Weightbearing AP, mortise, and lateral views of each ankle. COMPARISON: None FINDINGS: Left: Mild soft tissue prominence around the ankle. Small enthesophytes of the tip of the medial malleolus. The mortise joint space is symmetric. The talar dome is intact. No appreciable fracture. There is diffuse osseous demineralization. Small tibiotalar joint effusion. Plantar calcaneal and Achilles Achilles enthesophytes. Dorsal osteophytes of the midfoot are partially visualized. No dense soft tissue tophi. No soft tissue calcification. Marginal osteophytes of the tibiotalar joint. Right: Mild soft tissue prominence around the right ankle. No tibiotalar joint effusion. There are small marginal osteophytes of the tibiotalar joint. There are dorsal osteophytes of the midfoot. Small plantar calcaneal and Achilles enthesophytes. The mortise joint space is symmetric and preserved. The talar dome is intact. No dense soft tissue tophi. No soft tissue calcification. Procedure Note Iliana Randall MD - 04/23/2021 EXAMINATION: XR ANKLE MIN 3 VIEWS BILAT (GENERIC) CLINICAL HISTORY: pain, stiffness - evaluate for signs of OA (as enteredby ordering provider in the order requisition) TECHNIQUE: Weightbearing AP, mortise, and lateral views of each ankle. COMPARISON: None FINDINGS: Left: Mild soft tissue prominence around the ankle. Small enthesophytes ofthe tip of the medial malleolus. The mortise joint space is symmetric. Thetalar dome is intact. No appreciable fracture. There is diffuse osseous demineralization. Small tibiotalar joint effusion. Plantar calcaneal and Achilles Achilles enthesophytes. Dorsal osteophytes of the midfoot arepartially visualized. No dense soft tissue tophi. No soft tissue calcification.Marginal osteophytes of the tibiotalar joint. Right: Mild soft tissue prominence around the right ankle. No tibiotalarjoint effusion. There are small marginal osteophytes of the tibiotalar joint.There are dorsal osteophytes of the midfoot. Small plantar calcaneal andAchilles enthesophytes. The mortise joint space is symmetric and preserved. Thetalar dome is intact. No dense soft tissue tophi. No soft tissuecalcification. IMPRESSION 1. Bilateral tibiotalar and midfoot osteoarthropathy. 2. Probable small left tibiotalar joint effusion is nonspecific. Thank you for letting us participate in the care of this patient. If youare a health care provider and have any questions regarding this report,please contact the number below. For patients who have questions please contactthe health career and guidance counselor that requested your imaging first. Horace Mcclendon DO IMG DX ORDERABLES * XR Hand Min 3 views Bilat [...] who have questions please contact the health career and guidance counselor that requested your imaging first. ? Narrative [...] patients who have questions please contactthe health career and guidance counselor that requested your imaging first. Horace Mcclendon DO IMG DX ORDERABLES documented in this encounter Visit Diagnoses Diagnosis Osteoarthritis, unspecified osteoarthritis type, unspecified site Left hand pain Pain in limb Right hand pain Pain in limb documented in this encounter Care Teams [employer] Counselor Relationship Specialty Start Date End Date Esha Chowdary MD [address] [place] [address] PCP - General 03/17/13 documented as of this encounter
--- OUTSIDE RECORDS SUMMARY | 2024-05-26 09:13 | XMS_ITS | Encounter Summary ---
Author Organization [facility] Address [facility] [place] [address] Care Team Providers Care Block Paver Name Role Phone Esha Chowdary MD Primary Care Provider [phone] Reason for Visit * Reason Comments Follow-up Encounter Details Date Type Department Care Team (Late st Contact Info) Description 08/18/2013 10:00 AM EDT Office Visit Hematology [place] [address] Marizol Gustafson MD [facility] HEMATOLOGY/[place] [address] Pulmonary embolism; Alcohol abuse, daily use; Obesity (BMI 30.0-34.9) Discharge Disposition: Home Social History Tobacco Use Types Packs/Day Years Used Date Smoking Tobacco: Never Smokeless Tobacco: Never Sex and Gender Information Value Date Recorded Sex Assigned at Not on file Gender Identity Not on file Sexual Orientation Not on file documented as of this encounter Last Filed Vital Signs Vital Sign Reading Time Taken Comments Blood Pressure 159/86 08/18/2013 10:13 AM EDT Pulse 100 08/18/2013 10:13 AM EDT Temperature 37 ??C (98.6 ??F) 08/18/2013 10:13 AM EDT Respiratory Rate 18 08/18/2013 10:13 AM EDT Oxygen Saturation 97% 08/18/2013 10:13 AM EDT Inhaled Oxygen Concentration - - Weight 91 kg (200 lb 9.9 oz) 08/18/2013 10:13 AM EDT Height 168.5 cm (5' 6.34) 08/18/2013 10:13 AM E DT Body Mass Index 32.05 08/18/2013 10:13 AM EDT documented in this encounter Progress Notes * Marizol Gustafson MD - 08/19/2013 12:38 PM EDT +*+*+*+*+*+*+*+*+*+*+*+*+*+*+*+*+*+*+*+*+*+*+*+*+*+*+*+*+*+*+*+*+*+*+*+*+*+* Thrombosis Attending Physician I have independently interviewed and examined this patient in the outpatient clinic and have personally reviewed the relevant clinical, laboratory and radiological data with Dr. Arsenio Sexton, Hematology/Oncology Fellow. Please refer to the comprehensive separate consultation note, with which I concur, for complete details of our encounter with this patient. I have reviewed and endorse the recommendations as outlined and have made any additions/corrections below. 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 He had an episode of GI bleeding at a time when the INR was supratherapeutic. There has been no investigation for a source of bleeding. There is no family history of VTE, thus while Peterson may have a mild thrombophilia (they are common and often asymptomatic in families), whether he does or does not have one of these genetic predispositions does not influence anticoagulation recommendations so we opted not to do testing today, especially as this testing would impose a substantial out of pocket cost. Rather, we are concerned about the GI bleeding as this may represent an undiagnosed malignancy that was the trigger for the idiopathic clot. We reviewed the difference between an idiopathic VTE event and one that may have been precipitated by temporary risk factors (e.g., surgery, trauma, travel, hospitalization, immobilization) and discussed the additive nature of factors such as hereditary or acquired thrombophilia (e.g., factor V Leiden, PT [id number]), ABO blood type (non-O > O), dehydration, obesity, smoking varicose veins, diabetes, cancer, hormone use. I explained that the risk for developing a recurrent VTE is higher when the original event was idiopathic than when it was associated with identifiable risk factors that havesubsequently been eliminated. I explained that current ACCP recommendations (2012) for individuals with a first episode of idiopathic VTE are for at least 3 months of anticoagulation, with consideration for long-term anticoagulation if the benefit outweighs the risk. Long-term anticoagulation wouldbe even more strongly recommended in the event of a recurrent VTE episode. In his case, the VTE event was idiopathic but we are concerned about the source of GI bleeding possibly representing a malign kerri. We explained that most people with a supra therapeutic INR of only 7 do not bleed and those who do usually have an anatomic reason for doing so. He may have hemorrhoids, diverticulosis or some reason other than a malignancy for GI bleeding, but given the idiopathic clot, our suspicion is higher than it would otherwise be and he needs to be evaluated. Since he has received an appropriate course of anticoagulation (>3 months) we have recommended that he discontinue warfarin at this time as this will favor not only the endoscopy that he requires but also risk stratification testing with a D-dimer level. Given that his VTE event was idiopathic, the risk for recurrence is up to 20-30% over the two years following discontinuation of anticoagulation. In addition to the idiopathic nature of the event, male sex is his other clinically relevant risk factor for recurrence. We reviewed the use of post-anticoagulation D-dimer testing to further stratify his recurrence risk. A low D-dimer level 3-4 weeks after stopping anticoagulation is associated with a relatively lower risk for recurrence (5-7% over two years after stopping anticoagulation), where as a high D-dimer level is associated with the higher risk (20 - 30%). We recommended that we do D-dimer testing after this initial anticoagulation course has been completed. As we have stopped his warfarin today, we will see him back after a month off anticoagulation, i.e., 09/08, for D-dimer testing. If he has a high D-dimer at that time, we will likely recommend restarting anticoagulation and continuing for the long-term. In the meantime, he can hopefully be scheduled for endoscopy. In addition, when he returns for D- dimer testing we will check a lupus anticoagulant as that is the onlyother test that could strongly influence anticoagulation duration recommendations. We reminded him that although his risk for a recurrent unprovoked event is low during the few weeksthat he will be off warfarin it is not zero, and we reviewed the signs and symptoms of DVT and PE and reminded him to seek medical attention expeditiously should they occur. Finally, he will continue with low dose daily aspirin (81 mg) after stopping warfarin as there is some recent evidence from the WARFASA trial supporting its use for secondary VTE prevention after completion of an appropriate course of anticoagulation for idiopathic VTE (Dora et al., Aspirin for preventing the recurrence of venous thromboembolism. N Engl J Med. 2011March 31;366(21):1959- 67). In this study the risk for recurrent VTE was reduced by about 40% in the aspirin-treated group compared to the placebo group. The aspirin dose used in this study was 100 mg daily, but there is no reason to expect that 81 mg, widely available over the counter in the [place] would be inferior. While thisfinding has yet to be confirmed, the data for primary prevention of arterial thrombosis are robust,leading to a net benefit. In summary: Stop warfarin today Continue low dose daily aspirin Colonoscopy +/- upper endoscopy to evaluate source of GI bleeding while off warfarin (Dr. Chowdary can refer locally) PSA (Dr. Chowdary can do locally) No genetic thrombophilia screening at this time Seek medical attention in the event of new VTE symptoms Follow up with us on 09/08 for risk stratification testing and finalization of anticoagulation recommendations Marizol Gustafson MD Screw Machine Set Up Operator, [facility] * Arsenio French MD - 08/18/2013 11:01 AM EDT [facility] Department of Medicine [place] [address] [facility] THROMBOSIS FOLLOW-UP DATE OF VISIT 08/18/2013 Patient Basil Landon 1960 REFERRING PHYSICIAN Esha Chowdary MD PRIMARY CARE PHYSICIAN ESHA CHOWDARY MD THROMBOSIS PROBLEM LIST: He states that he didn't have any illness, trauma, injuries around April 2013. On April 09 he had sudden onset SOB and right sided chest pain. He was seen a local ED and CTA showed a right lower lobe basilar segment pulmonary embolism. He was treated with 4 months of warfarin therapy. This had a complication of an acute GI bleed 1 month after starting warfarin when his INR was 7. INTERVAL HISTORY: Basil Landon is a 53 y.o. year-old man with pulmonary embolism. 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 However around the end of March and beginning of April he reports that he wasn't having any active medical issues (including gout flare), traumas, hospitalizations. He hadn't been losing weight, no lymph adenopathy, no chest or abdominal pain, no hemoptysis, no blood in stools, no varicose veins. He reports that he had sudden onset of right sided chest pain on 04/09/13 and he presented to the ED on 04/11/13 and a CTA showed a right sided pulmonary embolism. He did not have leg swelling at that time. He was bridged with LMWH to warfarin. Mr. Landon reports that he drinks 6-8 beers a day. He reports that in May 2013 he presented with a GI bleed. His warfarin was held at this time, but he reports that an EGD/colonoscopy was not performed at this time (we do not have any reports from this encounter). Since this time his INR has remained in range and he hasn't had any major bleeding events, but he does report that he has intermittent blood in his stool that generally is bright red and at thetime that he cleans him self. PAST MEDICAL HISTORY Difficult to control hypertension Elevated uric acid levels resulting in gout Pulmonary embolism as stated above OPERATIVE PROCEDURES Reattachment of his left great toe MEDICATIONS Current Outpatient Prescriptions on File Prior to Visit Medication Sig Dispense Refill ??? warfarin (COUMADIN) 5 mg tablet Take 5 mg by mouth daily. As directed by PCP ??? colchicine (COLCRYS) 0.6 mg tablet Take 0.6 mg by mouth daily. ??? cloNIDine (CATAPRES) 0.1 mg tablet Take 0.2 mg by mouth 2 times daily. ??? aspirin 81 mg chewable tablet Take 81 mg by mouth daily. ??? multivitamin (THERAGRAN) tablet Take 1 tablet by mouth daily. ??? terazosin (HYTRIN) 1 mg capsule Take 2 mg by mouth nightly. ??? predniSONE (DELTASONE) 5 mg tablet Take 5 mg by mouth daily as needed. ??? [DISCONTINUED] ALLOPURINOL ORAL Take by mouth daily. 50 mg x2 weeks; then 100 mg QD ADVERSE DRUG REACTIONS Allergies as of 08/18/2013 - Review Complete 08/18/2013 Allergen Reaction Noted ??? Allopurinol 03/01/2013 ??? Atenolol 03/01/2013 ??? Diltiazem 03/01/2013 ??? Hctz/reserpine/hydralazine (wovyzvnjtvn-[id number]-[id number]) 03/01/2013 ??? Norvasc (amlodipine) 03/01/2013 FAMILY HISTORY No family h/o VTE Mother passed from lung cancer at age 69 Father passed from metastatic prostate cancer at 74 3 siblings w/o h/o blood clot or cancer 2 children who are reported to be healthy SOCIAL HISTORY Never smoker No THC use 6-7 beers a day (ongoing) for the last 8 years REVIEW OF SYSTEMS Fevers/chills/sweats No Recent infections No Unexplained weight loss No Headache/lightheadedness/syncope No Sinus pain/pressure No Oral sores/lesions/bleeding No Sore throat/dysphagia No Nosebleeds No Cough/SOB/chest pain/heart racing No Nausea/vomiting/dyspepsia No Abdominal pain No Diarrhea/constipation No Urinary pain, burning, incontinence No Hematuria No Vaginal discharge/bleeding No Skin rashes/ulcers No Back/joint pain/swelling No Leg swelling/pain/redness No Bruising/petechiae/bleeding/melena See HPI Sensory/motor No Polydipsia/polyuria/heat/cold intol No Lumps/bumps/swollen glands No Other Negative except as above PHYSICAL EXAMINATION BP 159/86 Pulse 100 Temp 37 ??C (98.6 ??F) (Oral) Resp 18 Ht 168.5 cm (5' 6.34) Wt 91 kg(200 lb 9.9 oz) BMI 32.05 kg/m2 SpO2 97% GENERAL: Well-appearing, articulate white male. Wearing camouflage gear. HEENT: Oropharynx clear; no mucosal lesions, petechiae, bleeding, thrush or ulcers. NECK: Supple; no cervical, supraclavicular or submental adenopathy. BREASTS: Exam deferred. CHEST: Clear to auscultation/percussion. No rales, rhonchi, wheezes. HEART: Regular rate and rhythm; no murmur, rub, gallop ABDOMEN: Soft, non-tender, no hepatosplenomegaly. GENITOURINARY: Exam deferred. EXTREMITIES: No clubbing, cyanosis or edema. No erythema, tenderness or palpable cords. No venous varicosities. No skin discoloration or hemosiderin deposits. Peripheral pulses palpable. MUSCULOSKELETAL: Spine nontender. Full ROM all joints. No acutely inflamed joints. SKIN: + petechiae bilateral legs. No ulcers or rashes. LYMPH: No palpable lymph nodes. NEUROLOGIC: Alert, oriented. Speech clear, coherent. No focal deficits noted. PSYCHIATRIC: Appropriate affect, no apparent distress. LABORATORY STUDIES See HPI RADIOGRAPHIC STUDIES I have personally reviewed the report of the CTA dated May 2013: reported from the following studies: IMPRESSION Basil Landon is a 53 y.o. man with idiopathic pulmonary embolism who has received 4 months of anticoagulation. We reviewed the options for anticoagulation at this point: 1) stop warfarin, 2) long-term moderate dose intensity warfarin (INR target 1.5 - 2.0) or 3) long- term full intensity warfarin (INR target 2.0 - 3.0). Mr. Landon doesn't have any obvious risk factors for VTE, however a significant portion ofpatients with idiopathic thromboembolism have an undetected malignancy. We recommend age appropriate cancer screening to be performed in this patient population. Further, we recommend the use of post-anticoagulation D-dimer levels to stratify his recurrence risk. A low D-dimer level is associated with a relatively low risk for recurrence i.e., 5% to 7% over the two years after stopping warfarin, c ompared to a high D-dimer level which portends a recurrence risk of up to 20 to 30%. He will stop his warfarin today and we will see him back in 3-4 weeks for risk stratification. We discussed that his PE has been treated, but he could have recurrent VTE during the period he is off anticoagulation,so we educated him on the warning signs of VTE (unilateral leg swelling or soreness, acute sob, hemoptysis). We reviewed preventive strategies for DVT and PE including weight loss, maintaining a goodactivity level and avoiding dehydration. We are concerned about Mr. Landon's reports of GI bleeding while on the warfarin. As stated above, we advised him to stop the warfarin today. We have recommended that he undergo work up for GI bleeding (colonoscopy and EGD were discussed with Dr. Chowdary's office). We reviewed the role of aspirin for venous thromboprophylaxis. While there is little evidence that aspirin is helpful for venous thromboprophylaxis, however we did recommend that he remain on the aspirin during the time that he is off warfarin. This being said, we generally do not recommend the useof aspirin while patients are anticoagulated on warfarin unless there is a significant arterial disease history. We discussed the role of thrombophilia testing (including genetic testing for prothrombin gene mutation and factor V Leiden). There are benefits to testing (family planning, awareness of VTE risk) and disadvantages (medical or insurance discrimination, cost). We discussed that thrombophilia conditions are only a part of our discission for alf anticoagulation and that the d-dimer has more prognostic weight in our discission for termite helper anticoagulation. Further, Mr. Landon has limited financial means and a high deductible on his insurance, so after a discussion of the pros and cons of genetic testing it was decided by all parties that we would only perform risk stratification d-dimer testing. Mr. Landon had the opportunity to ask questions and indicated that all his questions were answered to his satisfaction. We plan to see him back in clinic in 3-4 weeks for D-dimer testing and discussion of alf anticoagulation. PLAN/RECOMMENDATIONS - stop warfarin today - obtain d-dimer in 3-4 weeks for risk stratification of repeat thrombosis - will not perform genetic screening - he will need a colonoscopy and possible EGD locally done in the next 2-3 weeks to assess for cause of bleeding - he can stop the Asprin 7 days before a colonoscopy - if this hasn't been done PSA testing should be done - return to clinic in 3-4 weeks for discussion of termite helper anticoagulation This recommendations were discussed with Dr. Chowdary's office. Thank you for this consult, please contact me, ARSENIO FRENCH MD, with any questions or concerns (Hematology and Oncology Fellow) Pager [phone] +*+*+*+*+*+*+*+*+*+*+*+*+*+*+*+*+*+*+*+*+*+*+*+*+*+*+*+*+*+*+*+*+*+*+*+*+*+* Thrombosis Attending Physician I have independently interviewed and examined this patient in the outpatient clinic and have personally reviewed the relevant clinical, laboratory and radiological data with Dr. Arsenio Sexton, Hematology/Oncology Fellow. Please refer to the comprehensive consultation note above, with which I concur, for complete details of our encounter with this patient. I have reviewed and endorse the recommendations as outlined and have made any additions/corrections below. 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 He had an episode of GI bleeding at a time when the INR was supratherapeutic. There has been no investigation for a source of bleeding. There is no family history of VTE, thus while Peterson may have a mild thrombophilia (they are common and often asymptomatic in families), whether he does or does not have one of these genetic predispositions does not influence anticoagulation recommendations so we opted not to do testing today, especially as this testing would impose a substantial out of pocket cost. Rather, we are concerned about the GI bleeding as this may represent an undiagnosed malignancy that was the trigger for the idiopathic clot. We reviewed the difference between an idiopathic VTE event and one that may have been precipitated by temporary risk factors (e.g., surgery, trauma, travel, hospitalization, immobilization) and discussed the additive nature of factors such as hereditary or acquired thrombophilia (e.g., factor V Leiden, PT [id number]), ABO blood type (non-O > O), dehydration, obesity, smoking varicose veins, diabetes, cancer, hormone use. I explained that the risk for developing a recurrent VTE is higher when the original event was idiopathic than when it was associated with identifiable risk factors that havesubsequently been eliminated. I explained that current ACCP recommendations (2012) for individuals with a first episode of idiopathic VTE are for at least 3 months of anticoagulation, with consideration for long-term anticoagulation if the benefit outweighs the risk. Long-term anticoagulation wouldbe even more strongly recommended in the event of a recurrent VTE episode. In his case, the VTE event was idiopathic but we are concerned about the source of GI bleeding possibly representing a malignancy. We explained that most people with a supra therapeutic INR of only 7 do not bleed and those who do usually have an anatomic reason for doing so. He may have hemorrhoids, diverticulosis or some reason other than a malignancy for GI bleeding, but given the idiopathic clot, our suspicion is higher than it would otherwise be and he needs to be evaluated. Since he has received an appropriate course of anticoagulation (>3 months) we have recommended that he discontinue warfarin at this time as this will favor not only the endoscopy that he requires but also risk stratification testing with a D-dimer level. Given that his VTE event was idiopathic, the risk for recurrence is up to 20-30% over the two years following discontinuation of anticoagulation. In addition to the idiopathic nature of the event, male sex is his other clinically relevant risk factor for recurrence. We reviewed the use of post-anticoagulation D-dimer testing to further stratify his recurrence risk. A low D-dimer level 3-4 weeks after stopping anticoagulation is associated with a relatively lower risk for recurrence (5-7% over two years after stopping anticoagulation), where as a high D-dimer level is associated with the higher risk (20 - 30%). We recommended that we do D-dimer testing after this initial anticoagulation course has been completed. As we have stopped his warfarin today, we will see him back after a month off anticoagulation, i.e., 09/08, for D-dimer testing. If he has a high D-dimer at that time, we will likely recommend restarting anticoagulation and continuing for the long-term. In the meantime, he can hopefully be scheduled for endoscopy. In addition, when he returns for D- dimer testing we will check a lupus anticoagulant as that is the onlyother test that could strongly influence anticoagulation duration recommendations. We reminded him that although his risk for a recurrent unprovoked event is low during the few weeksthat he will be off warfarin it is not zero, and we reviewed the signs and symptoms of DVT and PE and reminded him to seek medical attention expeditiously should they occur. Finally, he will continue with low dose daily aspirin (81 mg) after stopping warfarin as there is some recent evidence from the WARFASA trial supporting its use for secondary VTE prevention after completion of an appropriate course of anticoagulation for idiopathic VTE (Vitaattini et al., Aspirin for preventing the recurrence of venous thromboembolism. N Engl J Med. 2011March 31;366(21):1959- 67). In this study the risk for recurrent VTE was reduced by about 40% in the aspirin-treated group compared to the placebo group. The aspirin dose used in this study was 100 mg daily, but there is no reason to expect that 81 mg, widely available over the counter in the [place] would be inferior. While thisfinding has yet to be confirmed, the data for primary prevention of arterial thrombosis are robust,leading to a net benefit. In summary: ?? Stop warfarin today ?? Continue low dose daily aspirin ?? Colonoscopy +/- upper endoscopy to evaluate source of GI bleeding while off warfarin (Dr. Chowdary can refer locally) ?? PSA (Dr. Chowdary can do locally) ?? No genetic thrombophilia screening at this time ?? Seek medical attention in the event of new VTE symptoms ?? Follow up with us on 09/08 for risk stratification testing and finalization of anticoagulation recommendations Marizol uGstafson MD Screw Machine Set Up Operator, [facility] documented in this encounter Miscellaneous Notes * Addendum Note - Marizol Gustafson MD - 08/19/2013 12:41 PM EDTAddended by: MARIZOL GUSTAFSON on: 08/19/2013 12:41 PM Modules accepted: Orders, Level of Service * Addendum Note - Arsenio French MD - 08/18/2013 4:05 PM EDTAddended by: ARSENIO FRENCH on: 08/18/2013 04:05 PM Modules accepted: Orders documented in this encounter Plan of Treatment Upcoming Encounters Date Type Department Care Team (Late st Contact Info) Description 07/06/2024 9:[address] [place] [address] Leticia Krishnaumrthy MD [facility] [place] [address] 07/06/2024 10:00 AM EDT Office [place] [address] Leticia Krishnamurthy MD [facility] [place] [address] documented as of this encounter Visit Diagnoses Diagnosis Pulmonary embolism Other pulmonary embolism and infarction Alcohol abuse, daily use Nondependent alcohol abuse, continuous drinking behavior Obesity (BMI 30.0-34.9) Obesity, unspecified documented in this encounter Care Teams Block Paver Relationship Specialty Start Date End Date Esha Chowdary MD [address] [place] [address] PCP - General 03/17/13 documented as of this encounter
--- OUTSIDE RECORDS SUMMARY | 2024-05-26 09:13 | XMS_ITS | Encounter Summary ---
[place] [address] Care Team Providers Care Group Home Counselor Name Role Phone Esha Chowdary MD Primary Care Provider [phone] Encounter Details Date Type Department Care Team (Late st Contact Info) Description 03/17/[address] [address] Walter Mahajan Jr., MD [address] [place] [address] Social History Tobacco Use Types Packs/Day Years Used Date Smoking Tobacco: Never Smokeless Tobacco: Never Sex and Gender Information Value Date Recorded Sex Assigned at Not on file Gender Identity Not on file Sexual Orientation Not on file documented as of this encounter Miscellaneous Notes * Telephone Encounter - Walter Mahajan Jr., MD - 05/02/2013 10:41 AM EDT Ok, unlikely clonidine causing gout See how he feels off it * Telephone Encounter - Vianney Phelps RN - 05/02/2013 9:49 AM EDT Spoke with patient's - he is having [...] on Coumadin. We have the ED report. * Telephone Encounter - Celsa Mahajan RN - 05/01/2013 10:19 AM EDT Called and left message for pt to call us and let us know how his BP is doing. * Telephone Encounter - Ashlyn Talbot RN - 04/10/2013 3:25 PM EDT Left message on home phone and cell * Telephone Encounter - Walter Mahajan Jr., MD - 04/10/2013 3:15 PM EDT Increase clonidine to 0.2 mg BID and try anti acids at bedtime Phone check 2 weeks to see how BP doing * Telephone Encounter - Ashlyn Talbot RN - 04/10/2013 3:07 PM EDT His b/ps have been running 150's/80's but [...] so he can have that discomfort evaluated. * Telephone Encounter - Mehreen Martinez - 03/17/2013 1:48 PM EDT Pt is to call with his BP readings in two weeks, which should be the week of 04/03/13. documented in this encounter Plan of Treatment Upcoming Encounters Date Type Department Care Team (Late st Contact Info) Description 07/06/2024 9:[address] [place] [address] Leticia Krishnamurthy MD [facility] [place] [address] 07/06/2024 10:00 AM EDT Office [place] [phone] Leticia Krishnamurthy MD [facility] [place] [address] documented as of this encounter Visit Diagnoses Not on filedocumented in this encounter Care Teams Group Home Counselor Relationship Specialty Start Date End Date Esha Chowdary MD [address] [place] [address] PCP - General 03/17/13 documented as of this encounter
--- OUTSIDE RECORDS SUMMARY | 2024-05-26 09:13 | XMS_ITS | Encounter Summary ---
[place] [address] Care Team Providers Care Cco & President Name Role Phone Esha Chowdary MD Primary Care Provider [phone] Encounter Details Date Type Department Care Team (Latest Contact Info) Description 06/09/2023 Travel Social History Tobacco Use Types Packs/Day Years [...] 9:[address] [place] [address] Leticia Krishnamurthy MD [facility] [place] [address] 07/06/2024 10:00 AM EDT [place] [phone] Leticia Krishnamurthy MD [facility] [place] [address] documented as of this encounter Visit Diagnoses Not on filedocumented in this encounter Care Teams Cco & President Relationship Specialty Start Date End Date Esha Chowdary MD [address] [place] [address] PCP - General 03/17/13 documented as of this encounter
--- OUTSIDE RECORDS SUMMARY | 2024-05-26 09:13 | XMS_ITS | Encounter Summary ---
[place] [address] Care Team Providers Care Door Tender Name Role Phone Esha Chowdary MD Primary Care Provider [phone] Reason for Referral * Diagnostic Test (Routine) - Closed Specialty Diagnoses / Procedures Referred By Tiffanie yuan Referred To Contact Diagnoses Peripheral vascular disease, unspecified Hypertension, unspecified type Procedures Duplex Study Renal Arteries, Bilat Esha Chowdary MD [address] [place] [address] [facility] [address] [place] [id number] Referral ID Status Reason Start Date Expiration Date V isits Requested Visits Authorized [id number] Closed Specialty Service Requested 05/28/2023 05/27/2024 1 1 Encounter Details Date Type Department Care Team (Latest Contact Info) Description 05/28/2023 Transcribe Orders eDH Incoming Referrals [phone] Esha Chowdary MD [address] [place], [place] [id number] Peripheral vascular disease, unspecified; Hypertension, unspecified type [...] 9:[address] [place] [phone] Leticia Krishnamurthy MD [facility] [place] [address] 07/06/2024 10:00 AM EDT [place] [phone] Leticia Krishnamurthy MD [facility] [address] NEUROLOGY [place], [place] [id number] documented as of this encounter Results * Duplex Study Renal Arteries, Bilat (06/14/2023 7:25 AM EDT) VB Text Report Department: Vascular Surgery Lab Patient: [id number] (YOANA LANDON) CPT: 78264 Referring Physician: ESHA CHOWDARY ?? Indications: PAD [...] type documented in this encounter Care Teams Door Tender Relationship Specialty Start Date End Date Esha Chowdary MD [address] [place] [address] PCP - General 03/17/13 documented as of this encounter
[2024-05-26 16:14] LABS: HCT 43.3 % (40.0-50.0); HGB 14.6 g/dL (13.5-17.5); MCH 32.1 pg (27.0-33.0); MCHC 33.7 % (32.0-36.0); MCV 95 fL (80-95); Platelet Count 132 10^3/uL (130-400); RBC 4.55 10^6/uL (4.36-5.78); RDW 11.9 % (11.8-14.1); RDW-SD 41.4 fL; WBC 5.93 10^3/uL (4.4-10.8)
[2024-05-26 16:15] LABS: ALT 38 U/L (16-63); AST 23 U/L (15-37); Albumin 3.9 g/dL (3.4-5.0); Alkaline Phosphatase 80 U/L (46-116); Anion Gap 7.7 mmol/L (3-11); BUN 10 mg/dL (7-18); Bilirubin, Total 0.52 mg/dL (0.2-1.0); CO2 30.3 mmol/L (21.0-32.0); CREATININE 0.8 mg/dL (0.70-1.30); Calcium 8.9 mg/dL (8.5-10.1); Calculated LDL 113 mg/dL (<100); Chloride 104 mmol/L (98-107); Cholesterol 212 mg/dL (<200); Estimated GFR 100.06 (mL/min/1.73m2); Glucose 119 mg/dL (74-106); HDL Cholesterol 89 mg/dL (40-60); Potassium 4.8 mmol/L (3.5-5.1); Sodium 142 mmol/L (136-145); Total Protein 6.9 g/dL (6.4-8.2); Triglyceride 51 mg/dL (<150)
[2024-05-26 17:12] LABS: Creatine Kinase 171 U/L (39-308)
[2024-05-26 23:03] LABS: PSA, Screening 3.4 ng/mL (<=4.5)
== END 2024-05-26 09:11 | disposition home or self-care (01) ==
LOC: NCHCN 09:10
PROVIDERS: PCP Family Medicine; Visit Provider Family Medicine
DX: I10 Essential (primary) hypertension (principal); E78.5 Hyperlipidemia, unspecified; R73.03 Prediabetes; M25.561 Pain in right knee; Z12.5 Encounter for screening for malignant neoplasm of prostate
CPT/HCPCS: 80053; 80061; 82550; 84153; 85027; 83036

== ENCOUNTER 2024-11-24 09:59 | Outpatient (REF) | payer MEDICAID, SELFPAY ==
[2024-11-24 15:18] LABS: Hemoglobin A1C 5.9 % (<5.7)
[2024-11-24 15:19] LABS: ALT 27 U/L (16-63); AST 18 U/L (15-37); Albumin 3.8 g/dL (3.4-5.0); Alkaline Phosphatase 93 U/L (46-116); Anion Gap 7.7 mmol/L (3-11); BUN 20 mg/dL (7-18); Bilirubin, Total 0.39 mg/dL (0.2-1.0); CO2 29.3 mmol/L (21.0-32.0); CREATININE 0.9 mg/dL (0.70-1.30); Calcium 9.2 mg/dL (8.5-10.1); Calculated LDL 86 mg/dL (<100); Chloride 106 mmol/L (98-107); Cholesterol 192 mg/dL (<200); Estimated GFR 95.97 (mL/min/1.73m2); Glucose 128 mg/dL (74-106); HDL Cholesterol 91 mg/dL (40-60); Potassium 4.5 mmol/L (3.5-5.1); Sodium 143 mmol/L (136-145); Total Protein 6.8 g/dL (6.4-8.2); Triglyceride 77 mg/dL (<150)
[2024-11-24 15:32] LABS: Creatine Kinase 86 U/L (39-308)
[2024-11-27 09:27] LABS: PSA, Screening 3.5 ng/mL (<=4.5)
== END 2024-11-24 10:00 | disposition home or self-care (01) ==
LOC: NCHCN 09:59
PROVIDERS: PCP Family Medicine; Visit Provider Family Medicine
DX: I10 Essential (primary) hypertension (principal); R73.03 Prediabetes; E78.5 Hyperlipidemia, unspecified
CPT/HCPCS: 80053; 80061; 82550; 84153; 83036